=== PATIENT | male | born 1980 | race Caucasian/White ===

== ENCOUNTER 2017-09-22 15:54 | Emergency (ER) | payer OTHER ==
[2017-09-22 16:41] LABS: Basophils # (A) 0.1 k/uL (0-0.2); Basophils % (A) 1 %; Eosinophils # (A) 0.1 k/uL (0-0.7); Eosinophils % (A) 1 %; HCT 50.5 % (39.0-53.0); HGB 16.9 gm/dL (13.0-17.5); Lymphocytes % (A) 12 %; MCH 29.4 pg (25.0-35.0); MCHC 33.5 g/dL (31.0-37.0); MCV 87.7 fL (80.0-100.0); Mean Platelet Volume 7.6; Monocytes # (A) 0.3 k/uL (0-1.0); Monocytes % (A) 4 %; Neutrophils # (A) 6.8 k/uL (1.3-7.7); Neutrophils % (A) 81 %; Platelet Count 218 k/uL (150-450); RBC 5.76 m/uL (4.30-5.90); RDW 11.6 % (11.5-15.5); WBC 8.4 k/uL (3.8-10.6)
[2017-09-22 16:49] LABS: ALT 28 U/L (21-72); AST 27 U/L (17-59); Albumin 4.7 g/dL (3.5-5.0); Alkaline Phosphatase 68 U/L (38-126); Anion Gap 15 mmol/L; Blood Urea Nitrogen 8 mg/dL (9-20); Calcium 9.8 mg/dL (8.4-10.2); Carbon Dioxide 24 mmol/L (22-30); Chloride 102 mmol/L (98-107); Glucose 97 mg/dL (74-99); Potassium 4.1 mmol/L (3.5-5.1); Sodium 141 mmol/L (137-145); Total Bilirubin 0.4 mg/dL (0.2-1.3); Total Protein 7.5 g/dL (6.3-8.2)
[2017-09-22 16:51] LABS: INR 1.2 (<1.2); Partial Thromboplastin Time 26.8 sec (22.0-30.0); Prothrombin Time 11.4 sec (9.0-12.0)
--- NOTE | 2017-09-22 17:09 | XR ---
EXAMINATION: XR chest 2V DATE AND TIME: 09/22/2017 4:52 PM ORDERING PROVIDER: Deandre Britton MD CLINICAL INDICATION: Pain TECHNIQUE: PA and lateral COMPARISON: 09/27/2015 DESCRIPTION: The lungs are clear. The pleural spaces are negative. The cardiac silhouette is not enlarged. The mediastinal and pleural silhouettes are unremarkable. The skeletal structures are intact without focal findings. The soft tissues are unremarkable. IMPRESSION: NO ACUTE PROCESS.
[2017-09-22 17:19] VITALS: RESP 16
--- NOTE | 2017-09-22 17:22 | ED ---
General Adult HPI - General Chief complaint: Shortness of Breath Stated complaint: chest congestion Time Seen by Provider: 09/22/17 16:35 Source: patient, RN notes reviewed Mode of arrival: ambulatory Limitations: no limitations - History of Present Illness Initial comments: 37-year-old male presents emergency Department chief complaint cough congestion. Patient states that he's been sick for last 2 days. Patient denies any known sick contacts. Patient complains of body aches, runny nose, sore throat, cough which is nonproductive. Denies any known fever does complain of some chills. Denies any nausea vomiting diarrhea constipation. Patient is a daily smoker. Denies any current headache no dizziness no chest pain. - Related Data Home Medications Medication Instructions Recorded Confirmed D-Methorphan/PE/Acetaminophen 2 cap PO DAILY PRN 09/22/17 09/22/17 [Vicks Dayquil Liquicaps] Dm/Acetaminophen/Doxylamine [Vicks 2 cap PO HS PRN 09/22/17 09/22/17 Nyquil Liquicaps] Previous Rx's Medication Instructions Recorded Azithromycin [Zithromax Z-pack] 0 mg PO DIRECTED #1 pack 09/22/17 predniSONE 50 mg PO DAILY #5 tab 09/22/17 Allergies Allergy/AdvReac Type Severity Reaction Status Date / Time codeine AdvReac Nausea & Verified 09/22/17 16:40 Vomiting Penicillins AdvReac Nausea & Verified 09/22/17 16:40 Vomiting Review of Systems ROS Statement: Those systems with pertinent positive or pertinent negative responses have been documented in the HPI. ROS Other: All systems not noted in ROS Statement are negative. Past Medical History Past Medical History: No Reported History History of Any Multi-Drug Resistant Organisms: None Reported Past Surgical History: Hernia Repair Additional Past Surgical History / Comment(s): medhat Past Psychological History: Anxiety, Depression Smoking Status: Current every day smoker Past Alcohol Use History: Occasional Past Drug Use History: Marijuana General Exam Limitations: no limitations General appearance: alert, in no apparent distress Head exam: Present: atraumatic, normocephalic, normal inspection Eye exam: Present: normal appearance, PERRL, EOMI. Absent: scleral icterus, conjunctival injection, periorbital swelling ENT exam: Present: normal exam, normal oropharynx, mucous membranes moist, TM's normal bilaterally, normal external ear exam Neck exam: Present: normal inspection, full ROM. Absent: tenderness, meningismus, lymphadenopathy Respiratory exam: Present: normal lung sounds bilaterally. Absent: respiratory distress, wheezes, rales, rhonchi, stridor Cardiovascular Exam: Present: regular rate, normal rhythm, normal heart sounds. Absent: systolic murmur, diastolic murmur, rubs, gallop, clicks Neurological exam: Present: alert, oriented X3, CN II-XII intact Skin exam: Present: warm, dry, intact, normal color. Absent: rash Course Vital Signs 09/22/17 09/22/17 16:03 17:15 Temperature 99.2 F 98.6 F Pulse Rate 97 66 Respiratory 20 16 Rate Blood Pressure 121/78 114/58 O2 Sat by Pulse 97 99 Oximetry Medical Decision Making - Medical Decision Making 37-year-old male presented for fever cough congestion. Patient has acute bronchitis. Patient's influenza Laboratory unremarkable. Patient discharged with azithromycin, Medrol Dosepak. Patient was counseled detail regarding smoking cessation. - Lab Data Result diagrams: 09/22/17 16:28 09/22/17 16:28 Lab Results 09/22/17 09/22/17 09/22/17 Range/Units 16:28 16:28 16:28 WBC 8.4 (3.8-10.6) k/uL RBC 5.76 (4.30-5.90) m/uL Hgb 16.9 (13.0-17.5) gm/dL Hct 50.5 (39.0-53.0) % MCV 87.7 (80.0-100.0) fL MCH 29.4 (25.0-35.0) pg MCHC 33.5 (31.0-37.0) g/dL RDW 11.6 (11.5-15.5) % Plt Count 218 (150-450) k/uL Neutrophils % 81 % Lymphocytes % 12 % Monocytes % 4 % Eosinophils % 1 % Basophils % 1 % Neutrophils # 6.8 (1.3-7.7) k/uL Lymphocytes # 1.0 (1.0-4.8) k/uL Monocytes # 0.3 (0-1.0) k/uL Eosinophils # 0.1 (0-0.7) k/uL Basophils # 0.1 (0-0.2) k/uL PT (9.0-12.0) sec INR (<1.2) APTT (22.0-30.0) sec Sodium 141 (137-145) mmol/L Potassium 4.1 (3.5-5.1) mmol/L Chloride 102 (98-107) mmol/L Carbon Dioxide 24 (22-30) mmol/L Anion Gap 15 mmol/L BUN 8 L (9-20) mg/dL Creatinine 0.90 (0.66-1.25) mg/dL Est GFR (CKD-EPI)AfAm >90 (>60 ml/min/1.73 sqM) Est GFR (CKD-EPI)NonAf >90 (>60 ml/min/1.73 sqM) Glucose 97 (74-99) mg/dL Plasma Lactic Acid Deacon 0.9 (0.7-2.0) mmol/L Calcium 9.8 (8.4-10.2) mg/dL Total Bilirubin 0.4 (0.2-1.3) mg/dL AST 27 (17-59) U/L ALT 28 (21-72) U/L Alkaline Phosphatase 68 (38-126) U/L Total Protein 7.5 (6.3-8.2) g/dL Albumin 4.7 (3.5-5.0) g/dL Influenza Type A RNA (Not Detectd) Influenza Type B (PCR) (Not Detectd) 09/22/17 09/22/17 Range/Units 16:28 17:15 WBC (3.8-10.6) k/uL RBC (4.30-5.90) m/uL Hgb (13.0-17.5) gm/dL Hct (39.0-53.0) % MCV (80.0-100.0) fL MCH (25.0-35.0) pg MCHC (31.0-37.0) g/dL RDW (11.5-15.5) % Plt Count (150-450) k/uL Neutrophils % % Lymphocytes % % Monocytes % % Eosinophils % % Basophils % % Neutrophils # (1.3-7.7) k/uL Lymphocytes # (1.0-4.8) k/uL Monocytes # (0-1.0) k/uL Eosinophils # (0-0.7) k/uL Basophils # (0-0.2) k/uL PT 11.4 (9.0-12.0) sec INR 1.2 H (<1.2) APTT 26.8 (22.0-30.0) sec Sodium (137-145) mmol/L Potassium (3.5-5.1) mmol/L Chloride (98-107) mmol/L Carbon Dioxide (22-30) mmol/L Anion Gap mmol/L BUN (9-20) mg/dL Creatinine (0.66-1.25) mg/dL Est GFR (CKD-EPI)AfAm (>60 ml/min/1.73 sqM) Est GFR (CKD-EPI)NonAf (>60 ml/min/1.73 sqM) Glucose (74-99) mg/dL Plasma Lactic Acid Deacon (0.7-2.0) mmol/L Calcium (8.4-10.2) mg/dL Total Bilirubin (0.2-1.3) mg/dL AST (17-59) U/L ALT (21-72) U/L Alkaline Phosphatase (38-126) U/L Total Protein (6.3-8.2) g/dL Albumin (3.5-5.0) g/dL Influenza Type A RNA Not Detected (Not Detectd) Influenza Type B (PCR) Not Detected (Not Detectd) Disposition Clinical Impression: Acute bronchitis Disposition: HOME SELF-CARE Condition: Stable Instructions: Acute Bronchitis (ED) Additional Instructions: Please return to the Emergency Department if symptoms worsen or any other concerns. Prescriptions: Azithromycin [Zithromax Z-pack] 0 mg PO DIRECTED #1 pack predniSONE 50 mg PO DAILY #5 tab Referrals: None,Stated [Primary Care Provider] - 1-2 days Time of Disposition: 17:50
[2017-09-22 18:09] VITALS: BP 109/58; PULSE 77; TEMP 98.8
== END 2017-09-22 18:11 | disposition home or self-care (01) ==
LOC: EC 15:54
DX: J20.9 Acute bronchitis, unspecified (principal); F17.200 Nicotine dependence, unspecified, uncomplicated; Z88.0 Allergy status to penicillin; Z88.5 Allergy status to narcotic agent
CPT/HCPCS: 36415; 71046; 80053; 83605; 85025; 85610; 85730; 87040; 87502; 99285

== ENCOUNTER 2018-10-02 08:37 | Inpatient (IN) | payer OTHER ==
[2018-10-02 09:22] LABS: Basophils % (A) 0 %; Eosinophils # (A) 0.1 k/uL (0-0.7); Eosinophils % (A) 3 %; HCT 39.9 % (39.0-53.0); HGB 14.3 gm/dL (13.0-17.5); Lymphocytes % (A) 28 %; MCH 30.7 pg (25.0-35.0); MCV 85.3 fL (80.0-100.0); Mean Platelet Volume 8.8; Monocytes # (A) 0.3 k/uL (0-1.0); Monocytes % (A) 8 %; Neutrophils % (A) 59 %; Platelet Count 147 k/uL (150-450); RBC 4.68 m/uL (4.30-5.90); WBC 3.4 k/uL (3.8-10.6)
[2018-10-02 09:30] LABS: ALT 38 U/L (21-72); AST 35 U/L (17-59); Albumin 4.2 g/dL (3.5-5.0); Alkaline Phosphatase 87 U/L (38-126); Amylase 56 U/L (30-110); Anion Gap 9 mmol/L; Blood Urea Nitrogen 7 mg/dL (9-20); Calcium 9.4 mg/dL (8.4-10.2); Carbon Dioxide 27 mmol/L (22-30); Chloride 106 mmol/L (98-107); Glucose 91 mg/dL (74-99); Lipase 64 U/L (23-300); Potassium 3.5 mmol/L (3.5-5.1); Sodium 142 mmol/L (137-145); Total Bilirubin 0.6 mg/dL (0.2-1.3); Total Protein 6.6 g/dL (6.3-8.2)
[2018-10-02] MEDS ORDERED: ONDANSETRON 4 MG/2 ML VIAL IVP STA (09:31)
[2018-10-02] MEDS ORDERED: SODIUM CHLORIDE 0.9% 1,000 ML IV STA ×2 (09:31)
[2018-10-02] MEDS ORDERED: KETOROLAC 30 MG/ML 1 ML VIAL IVP STA (09:31)
--- NOTE | 2018-10-02 09:34 | ED ---
Abdominal Pain HPI - General Chief Complaint: Abdominal Pain Stated Complaint: abd pain Time Seen by Provider: 10/02/18 08:52 Source: patient, RN notes reviewed, old records reviewed Mode of arrival: ambulatory Limitations: no limitations - History of Present Illness Initial Comments: 38-year-old male presents emergency department today with 2 weeks of lower abdominal pain. He states that he is only relieved a few crackers and having stomach upset. He hasn't had vomiting within the past 10 days. Patient denies any associated chest pain or shortness of breath. He reports it seems there is having normal stools. Patient reports that he seen urgent care and been placed on multiple and acetaminophen this and recently started on Bentyl. He reports subjective fevers and chills. Patient states that he's had 2 hernia repair surgeries. - Related Data Home Medications Medication Instructions Recorded Confirmed No Known Home Medications 10/02/18 10/02/18 Allergies Allergy/AdvReac Type Severity Reaction Status Date / Time codeine AdvReac Nausea & Verified 10/02/18 10:03 Vomiting Penicillins AdvReac Nausea & Verified 10/02/18 10:03 Vomiting Review of Systems ROS Statement: Those systems with pertinent positive or pertinent negative responses have been documented in the HPI. ROS Other: All systems not noted in ROS Statement are negative. Past Medical History Past Medical History: GERD/Reflux History of Any Multi-Drug Resistant Organisms: None Reported Past Surgical History: Hernia Repair Additional Past Surgical History / Comment(s): medhat Past Psychological History: Anxiety, Depression Smoking Status: Current every day smoker Past Alcohol Use History: Occasional Past Drug Use History: Marijuana General Exam - General Exam Comments Initial Comments: This is a 38 male. Alert and oriented. No distress. Limitations: no limitations General appearance: alert, in no apparent distress Head exam: Present: atraumatic, normocephalic, normal inspection Eye exam: Present: normal appearance, PERRL, EOMI. Absent: scleral icterus, conjunctival injection, periorbital swelling ENT exam: Present: normal exam, mucous membranes moist Neck exam: Present: normal inspection. Absent: tenderness, meningismus, lymphadenopathy Respiratory exam: Present: normal lung sounds bilaterally. Absent: respiratory distress, wheezes, rales, rhonchi, stridor Cardiovascular Exam: Present: regular rate, normal rhythm, normal heart sounds. Absent: systolic murmur, diastolic murmur, rubs, gallop, clicks GI/Abdominal exam: Present: tenderness (Diffuse abdominal tenderness. Worsening tenderness over the left lower right lower quadrants.), normal bowel sounds. Absent: soft, distended, guarding, rebound, rigid Extremities exam: Present: normal inspection, full ROM, normal capillary refill. Absent: tenderness, pedal edema, joint swelling, calf tenderness Back exam: Present: normal inspection Course Vital Signs 10/02/18 10/02/18 10/02/18 08:39 11:45 13:01 Temperature 98.6 F Pulse Rate 86 54 L 71 Respiratory 18 16 18 Rate Blood Pressure 137/91 154/88 140/97 O2 Sat by Pulse 97 97 100 Oximetry Medical Decision Making - Medical Decision Making 38-year-old male presents for his pharmacy was 2 weeks of lower abdominal diffuse pain. Patient at this time has no fever. He reports subjective fevers at home. Patient has had no nausea or vomiting while in the ER. He's been seen by urgent care and treated with multiple antacid medication. Patient at this time was given IV fluids labwork obtained. Patient's lab work does show a low white blood cell count of 3.4. Low platelet count. She panels were unr emarkable. Urine sample did show 3+ ketones. No sign of infection. On exam he had diffuse lower abdominal tenderness. When asked Patient on KUB and computed tomography scan about previous CTs with oral contrast he states he's not had any. He has been taking oral liquid antacid medication such as Pepto-Bismol. Patient at this time had abnormal CT findings of some mild free fluid in the pelvis. He also has evidence of hepatic congestion of uncertain etiology. His liver enzymes were unremarkable. Patient informed of these results. I discussed the case with Dr. Loving. He recommended admitting the Patient at this time with consults to surgery. Patient is agreement to this plan. All questions answered. - Lab Data Result diagrams: 10/02/18 09:06 10/02/18 09:06 Lab Results 10/02/18 10/02/18 10/02/18 Range/Units 09:06 09:06 09:30 WBC 3.4 L (3.8-10.6) k/uL RBC 4.68 (4.30-5.90) m/uL Hgb 14.3 (13.0-17.5) gm/dL Hct 39.9 (39.0-53.0) % MCV 85.3 (80.0-100.0) fL MCH 30.7 (25.0-35.0) pg MCHC 36.0 (31.0-37.0) g/dL RDW 13.0 (11.5-15.5) % Plt Count 147 L (150-450) k/uL Neutrophils % 59 % Lymphocytes % 28 % Monocytes % 8 % Eosinophils % 3 % Basophils % 0 % Neutrophils # 2.0 (1.3-7.7) k/uL Lymphocytes # 1.0 (1.0-4.8) k/uL Monocytes # 0.3 (0-1.0) k/uL Eosinophils # 0.1 (0-0.7) k/uL Basophils # 0.0 (0-0.2) k/uL Sodium 142 (137-145) mmol/L Potassium 3.5 (3.5-5.1) mmol/L Chloride 106 (98-107) mmol/L Carbon Dioxide 27 (22-30) mmol/L Anion Gap 9 mmol/L BUN 7 L (9-20) mg/dL Creatinine 0.85 (0.66-1.25) mg/dL Est GFR (CKD-EPI)AfAm >90 (>60 ml/min/1.73 sqM) Est GFR (CKD-EPI)NonAf >90 (>60 ml/min/1.73 sqM) Glucose 91 (74-99) mg/dL Calcium 9.4 (8.4-10.2) mg/dL Total Bilirubin 0.6 (0.2-1.3) mg/dL AST 35 (17-59) U/L ALT 38 (21-72) U/L Alkaline Phosphatase 87 (38-126) U/L Total Protein 6.6 (6.3-8.2) g/dL Albumin 4.2 (3.5-5.0) g/dL Amylase 56 (30-110) U/L Lipase 64 (23-300) U/L Urine Color Yellow Urine Appearance Clear (Clear) Urine pH 8.5 H (5.0-8.0) Ur Specific [place] 1.021 (1.001-1.035) Urine Protein Trace H (Negative) Urine Glucose (UA) Negative (Negative) Urine Ketones 3+ H (Negative) Urine Blood Negative (Negative) Urine Nitrite Negative (Negative) Urine Bilirubin Negative (Negative) Urine Urobilinogen 2.0 (<2.0) mg/dL Ur Leukocyte Esterase Negative (Negative) - Radiology Data Radiology results: report reviewed CT shows nonspecific small amount of pelvic free fluid abnormal for a male Patient but of uncertain etiology. Be monitored clinically. Mild hepatomegaly with heterogeneous appearance of the liver inferior portal edema. Distention of the IVC as well. May relate to an aggressive hydrated state. Correlating with LFTs to exclude possibility of underlying hepatitis. Mild cervical differential bladder wall thickening correlate to exclude cystitis. Some retained oral contrast material in the right colon as well as rectum. Correlating for any recent outside radiographic studies. Disposition Clinical Impression: Intractable abdominal pain, Free fluid in pelvis, Hepatomegaly Disposition: ADMITTED IP TO THIS HOSP Condition: Stable Is patient prescribed a controlled substance at d/c from ED?: No Referrals: None,Stated [Primary Care Provider] - 1-2 days Time of Disposition: 13:30
[2018-10-02 09:50] LABS: Appearance,Urine Clear (Clear); Bilirubin,Urine Negative (Negative); Blood,Urine Negative (Negative); Color,Urine Yellow; Glucose,Urine (UA) Negative (Negative); Ketones,Urine 3+ (Negative); Leukocyte Esterase,Urine Negative (Negative); Nitrite,Urine Negative (Negative); PH, Urine 8.5 (5.0-8.0); Protein,Urine Trace (Negative); Specific Gravity,Urine 1.021 (1.001-1.035)
--- NOTE | 2018-10-02 10:52 | XR ---
EXAMINATION TYPE: XR KUB DATE OF EXAM: 10/02/2018 CLINICAL DATA: 38-year-old male with abdominal pain, PHH COMPARISON: None FINDINGS: Lung bases are clear. No evidence for free intraperitoneal air. Small air-fluid levels are noted within the right paramedian mid to lower abdominal small bowel loops . No abnormal dilatation. Scattered colonic air. There is faint density within the cecum and ascendin g colon that could represent faint oral contrast material. No suspicious calcifications seen. IMPRESSION: 1. Nonspecific, overall nonobstructive bowel gas pattern. No free air. 2. Small central air-fluid levels in the right paramedian mid to lower abdomen suggest a regional ile us or enteritis. 3. Some faint density in the cecum and ascending colon could represent residual oral contrast if the patient had a recent outside fluoroscopic swallow study or oral contrast enhanced CT.
--- NOTE | 2018-10-02 12:06 | CT ---
EXAMINATION TYPE: CT abdomen pelvis w con DATE OF EXAM: 10/02/2018 COMPARISON: NONE HISTORY: 38-year-old male Lower pelvic pain, 13 days TECHNIQUE: Contiguous axial scanning of the abdomen and pelvis following administration of 100 ml Iso rosemarie 300 IV contrast. Delayed images through the kidneys and coronal/sagittal reconstructions perform ed. CT DLP: 550.4 mGycm Automated exposure control for dose reduction was used. FINDINGS: Heart normal size without pericardial effusion. Bases clear without pleural effusion. Slightly heterogeneous appearance to the liver. Mild periportal edema. Liver is mildly enlarged at 18 .3 cm. Portal venous system is patent. No biliary ductal dilatation. Prominent distention of the IVC. Gallbladder, adrenal glands, kidneys, spleen, and pancreas appear within normal limits. No dilated small bowel, free fluid, or free air. Normal appendix is seen. There is some retained oral contrast material within the cecum and small ana unt within the rectum as well. No significant stool burden. No mesenteric or retroperitoneal lymphadenopathy. A few scattered prominent mesenteric lymph nodes me asure up to 5 mm. Mild circumferential bladder wall thickening. Prostate gland measures 3.6 cm wide. Trace pelvic free fluid. No pelvic lymphadenopathy. Bones: No osseous destructive process. IMPRESSION: 1. NONSPECIFIC SMALL AMOUNT OF PELVIC FREE FLUID, ABNORMAL FOR A MALE PATIENT BUT OF UNCERTAIN ETIOLO GY. THE PATIENT'S STATUS CAN BE MONITORED CLINICALLY. 2. MILD HEPATOMEGALY WITH SLIGHTLY HETEROGENEOUS APPEARANCE TO THE LIVER AND PERIPORTAL EDEMA. GIVEN DISTENTION OF THE IVC WELL, FINDINGS MAY RELATE TO AGGRESSIVE HYDRATED STATE. CORRELATE WITH LFT's TO EXCLUDE THE POSSIBILITY OF UNDERLYING HEPATITIS. 3. MILD CIRCUMFERENTIAL BLADDER WALL THICKENING; CORRELATE TO EXCLUDE CYSTITIS. 4. SOME RETAINED ORAL CONTRAST MATERIAL IS CONFIRMED IN THE RIGHT SIDE OF THE COLON WELL THE RE CTUM. CORRELATE FOR ANY RECENT OUTSIDE RADIOGRAPHIC/CT STUDIES.
[2018-10-02] MEDS ORDERED: MORPHINE SULFATE 4 MG/ML SYRINGE IVP STA (12:49)
[2018-10-02] MEDS ORDERED: ACETAMINOPHEN TAB 325 MG TAB PO PRN (13:31)
[2018-10-02] MEDS ORDERED: KETOROLAC 30 MG/ML 1 ML VIAL IVP PRN (13:31)
[2018-10-02] MEDS ORDERED: NALOXONE 0.4 MG/ML 1 ML VIAL IV PRN (13:31)
[2018-10-02] MEDS: MORPHINE SULFATE 4 MG/ML SYRINGE IV PRN ×2 (15:14→19:56)
[2018-10-02] MEDS ORDERED: ALPRAZolam 0.25 MG TAB PO PRN (17:07)
[2018-10-02] MEDS ORDERED: TEMAZEPAM 15 MG CAP PO PRN (17:07)
[2018-10-02] MEDS: SODIUM CHLORIDE 0.9% 1,000 ML IV SCH ×4 (17:26→23:53)
[2018-10-02] MEDS: ONDANSETRON 4 MG/2 ML VIAL IVP PRN (17:27)
--- NOTE | 2018-10-02 18:01 | XR ---
EXAMINATION: XR chest 1V portable DATE AND TIME: 10/02/2018 5:34 PM CLINICAL INDICATION: PHH; chf TECHNIQUE: AP upright portable COMPARISON: 09/22/2017 FINDINGS: The lungs are clear. The pleural spaces are negative. The cardiac silhouette is not enlarged. The remainder of the mediastinal silhouette is unremarkable. The skeletal structures and soft tissues are negative for acute findings. IMPRESSION: NO ACUTE PROCESS.
[2018-10-02 18:57] LABS: Amphetamine Screen,Urine Not Detected (NotDetected); Barbiturate Screen,Urine Not Detected (NotDetected); Benzodiazepines Screen,Urine Not Detected (NotDetected); Cocaine Screen,Urine Not Detected (NotDetected); Methadone Screen, Urine Not Detected (NotDetected); Opiate Screen,Urine Detected (NotDetected); Oxycodone Screen, Urine Not Detected (NotDetected); Phencyclidine Screen,Urine Not Detected (NotDetected); Tricyclic Antidepressant,Urine Not Detected (NotDetected); Urn Cannabinoid Scrn Detected (NotDetected)
[2018-10-02] MEDS: HEPARIN SODIUM,PORCINE 5,000 UNIT/ML 1 ML VIAL SQ SCH (19:54)
[2018-10-02] MEDS: OSELTAMIVIR 75 MG CAP PO SCH (19:56)
[2018-10-02] MEDS: PANTOPRAZOLE 40 MG/10 ML VIAL IVP SCH (19:56)
--- NOTE | 2018-10-02 20:29 | HP ---
HISTORY AND PHYSICAL CHIEF COMPLAINTS: Abdominal pain and flu-like symptoms. HISTORY OF PRESENT ILLNESS: This 38-year-old gentleman with a past medical history of GERD, history of hernia repair, history of anxiety, depression, not being followed by any primary physician in the outpatient setting, has been complaining of flu symptoms for the past several days. Patient is not feeling well. Patient has cough and sputum. Patient is also complaining of abdominal pain which is felt in the upper part of the abdomen and subsequently in the lower part, also. The patient came to [facility] and was admitted for further evaluation and treatment. The patient apparently had hernia surgery while the patient was in [place]. Patient is not followed by any primary physician in the outpatient setting at this time. PAST MEDICAL HISTORY: 1. Previous hernia surgery. 2. History of GERD. 3. History of anxiety/depression. HOME MEDICATIONS: None. ALLERGIES: CODEINE and PENICILLIN. FAMILY HISTORY: History of heart disease, strokes. SOCIAL HISTORY: History of smoking. Occasional alcohol intake and marijuana usage. REVIEW OF SYSTEMS: ENT: No diminished hearing. No diminished vision. CARDIOVASCULAR SYSTEM: No angina, palpitations. RESPIRATORY SYSTEM: As mentioned earlier. GI: As mentioned earlier. : No dysuria or retention. NERVOUS SYSTEM: No numbness, weakness. ALLERGY/IMMUNOLOGY: No asthma, hayfever. MUSCULOSKELETAL: As mentioned earlier. HEMATOLOGY/ONCOLOGY: No history of anemia. ENDOCRINE: No history of diabetes, hypothyroidism. CONSTITUTIONAL: As mentioned earlier. DERMATOLOGY: Negative. RHEUMATOLOGY: Negative. PSYCHIATRY: As mentioned earlier. PHYSICAL EXAMINATION: Patient is alert and oriented x3. Pulse 66, blood pressure 127/87, respiration 18, temperature 98.5, pulse ox 100% on room air. HEENT: Conjunctivae normal. Oral mucosa moist. NECK: No jugular venous distention. No carotid bruit. No lymph node enlargement. CARDIOVASCULAR SYSTEM: S1, S2 muffled. No S3. No S4. RESPIRATORY SYSTEM: Breath sounds diminished at the bases. A few rhonchi. No crackles. ABDOMEN: Soft. Mild diffuse discomfort with palpation. No guarding. No rigidity. No mass palpable. No tenderness. No ascites. LEGS: No edema. No swelling. NERVOUS SYSTEM: Higher functions as mentioned earlier. Moves all 4 limbs. No focal motor or sensory deficit. LYMPHATICS: No lymph node palpable in neck, axillae or groin. SKIN: No ulcer, rash, bleeding. JOINTS: No active deforming arthropathy. LABS: Labs at this time show WBC 3.4, hemoglobin 14.3, platelets 147. Urine ketones are [address] scan of the abdomen showed a small amount of fluid in the pelvis with hepatomegaly. ASSESSMENT: 1. Abdominal pain for evaluation with possibly mild hepatomegaly and minimal ascites, possibly viral syndrome. 2. Mild circumferential urinary bladder wall thickening, possibly cystitis. 3. Mild leukopenia. 4. Thrombocytopenia, possibly secondary to viral syndrome. 5. History of gastroesophageal reflux disease. 6. History of anxiety, depression. 7. History of nicotine dependence. 8. History of tetrahydrocannabinol. RECOMMENDATIONS AND DISCUSSION: In this 38-year-old gentleman who presented with multiple complex medical issues, we will monitor the patient closely, continue the current medications, continue with symptomatic treatment. Surgical evaluation has been sought. Multiple findings noted in the x-ray plain. The CT scan of the abdomen is rather unusual. I would recommend testing and continue to monitor. Viral syndrome can also produce the same symptoms. See orders for details. Symptomatic treatment provided. Further recommendations to follow. Prognosis guarded. Also recommend that the patient follow up with a family physician in the outpatient setting. MMODL / IJN: [id number] / MTDD
--- NOTE | 2018-10-02 21:35 | P.GSCN ---
History of Present Illness Consult date: 10/02/18 History of present illness: Patient has the flu with overlapping gastroenteritis. No surgical intervention. Aggressive IVF hydration and treatment for flu. Past Medical History Past Medical History: GERD/Reflux History of Any Multi-Drug Resistant Organisms: None Reported Past Surgical History: Hernia Repair Additional Past Surgical History / Comment(s): medhat Past Psychological History: Anxiety, Depression Smoking Status: Current every day smoker Past Alcohol Use History: Occasional Past Drug Use History: Marijuana Medications and Allergies Home Medications Medication Instructions Recorded Confirmed Type No Known Home Medications 10/02/18 10/02/18 History Allergies Allergy/AdvReac Type Severity Reaction Status Date / Time codeine AdvReac Nausea & Verified 10/02/18 10:03 Vomiting Penicillins AdvReac Nausea & Verified 10/02/18 10:03 Vomiting Surgical - Exam Vital Signs Temp Pulse Resp BP Pulse Ox 98.6 F 86 18 137/91 97 10/02/18 08:39 10/02/18 08:39 10/02/18 08:39 10/02/18 08:39 10/02/18 08:39 Results - Labs 10/02/18 09:06 10/02/18 09:06 Abnormal Lab Results - Last 24 Hours (Table) 10/02/18 10/02/18 10/02/18 Range/Units 09:06 09:06 09:06 WBC 3.4 L (3.8-10.6) k/uL Plt Count 147 L (150-450) k/uL BUN 7 L (9-20) mg/dL C-Reactive Protein 18.1 H (<10.0) mg/L Urine pH (5.0-8.0) Urine Protein (Negative) Urine Ketones (Negative) Urine Opiates Screen (NotDetected) U Marijuana (THC) Screen (NotDetected) Influenza Type B (PCR) (Not Detectd) 10/02/18 10/02/18 10/02/18 Range/Units 09:30 17:30 18:35 WBC (3.8-10.6) k/uL Plt Count (150-450) k/uL BUN (9-20) mg/dL C-Reactive Protein (<10.0) mg/L Urine pH 8.5 H (5.0-8.0) Urine Protein Trace H (Negative) Urine Ketones 3+ H (Negative) Urine Opiates Screen Detected H (NotDetected) U Marijuana (THC) Screen Detected H (NotDetected) Influenza Type B (PCR) Detected H (Not Detectd) Diabetes panel 10/02/18 Range/Units 09:06 Sodium 142 (137-145) mmol/L Potassium 3.5 (3.5-5.1) mmol/L Chloride 106 (98-107) mmol/L Carbon Dioxide 27 (22-30) mmol/L BUN 7 L (9-20) mg/dL Creatinine 0.85 (0.66-1.25) mg/dL Glucose 91 (74-99) mg/dL Calcium 9.4 (8.4-10.2) mg/dL AST 35 (17-59) U/L ALT 38 (21-72) U/L Alkaline Phosphatase 87 (38-126) U/L Total Protein 6.6 (6.3-8.2) g/dL Albumin 4.2 (3.5-5.0) g/dL Calcium panel 10/02/18 Range/Units 09:06 Calcium 9.4 (8.4-10.2) mg/dL Albumin 4.2 (3.5-5.0) g/dL Pituitary panel 10/02/18 Range/Units 09:06 Sodium 142 (137-145) mmol/L Potassium 3.5 (3.5-5.1) mmol/L Chloride 106 (98-107) mmol/L Carbon Dioxide 27 (22-30) mmol/L BUN 7 L (9-20) mg/dL Creatinine 0.85 (0.66-1.25) mg/dL Glucose 91 (74-99) mg/dL Calcium 9.4 (8.4-10.2) mg/dL Adrenal panel 10/02/18 Range/Units 09:06 Sodium 142 (137-145) mmol/L Potassium 3.5 (3.5-5.1) mmol/L Chloride 106 (98-107) mmol/L Carbon Dioxide 27 (22-30) mmol/L BUN 7 L (9-20) mg/dL Creatinine 0.85 (0.66-1.25) mg/dL Glucose 91 (74-99) mg/dL Calcium 9.4 (8.4-10.2) mg/dL Total Bilirubin 0.6 (0.2-1.3) mg/dL AST 35 (17-59) U/L ALT 38 (21-72) U/L Alkaline Phosphatase 87 (38-126) U/L Total Protein 6.6 (6.3-8.2) g/dL Albumin 4.2 (3.5-5.0) g/dL
[2018-10-03] MEDS: MORPHINE SULFATE 4 MG/ML SYRINGE IV PRN ×4 (01:18→19:15)
[2018-10-03] MEDS: ONDANSETRON 4 MG/2 ML VIAL IVP PRN ×2 (05:10→15:06)
[2018-10-03 08:49] LABS: Basophils % (A) 1 %; Eosinophils % (A) 1 %; HCT 39.5 % (39.0-53.0); HGB 13.9 gm/dL (13.0-17.5); Lymphocytes # (A) 1.5 k/uL (1.0-4.8); Lymphocytes % (A) 39 %; MCH 30.2 pg (25.0-35.0); MCHC 35.2 g/dL (31.0-37.0); Mean Platelet Volume 10.4; Monocytes # (A) 0.2 k/uL (0-1.0); Monocytes % (A) 6 %; Neutrophils # (A) 1.9 k/uL (1.3-7.7); Neutrophils % (A) 50 %; Platelet Count 111 k/uL (150-450); RDW 13.1 % (11.5-15.5); WBC 3.8 k/uL (3.8-10.6)
[2018-10-03] MEDS ORDERED: PANTOPRAZOLE 40 MG/10 ML VIAL IV SCH (09:00)
[2018-10-03 09:02] LABS: ALT 34 U/L (21-72); AST 30 U/L (17-59); Albumin 3.8 g/dL (3.5-5.0); Alkaline Phosphatase 71 U/L (38-126); Anion Gap 8 mmol/L; Blood Urea Nitrogen 13 mg/dL (9-20); Calcium 8.6 mg/dL (8.4-10.2); Carbon Dioxide 25 mmol/L (22-30); Chloride 107 mmol/L (98-107); Glucose 79 mg/dL (74-99); Magnesium 1.8 mg/dL (1.6-2.3); Potassium 3.7 mmol/L (3.5-5.1); Sodium 140 mmol/L (137-145); Total Bilirubin 0.7 mg/dL (0.2-1.3)
[2018-10-03] MEDS: PANTOPRAZOLE 40 MG/10 ML VIAL IVP SCH ×2 (09:07→22:51)
[2018-10-03] MEDS: HEPARIN SODIUM,PORCINE 5,000 UNIT/ML 1 ML VIAL SQ SCH ×3 (09:07→22:20)
[2018-10-03] MEDS: MULTIVITAMINS, THERA 1 EACH TAB PO SCH (09:08)
[2018-10-03] MEDS: OSELTAMIVIR 75 MG CAP PO SCH ×2 (09:08→22:51)
[2018-10-03] MEDS: SODIUM CHLORIDE 0.9% 1,000 ML IV SCH (10:07)
[2018-10-03] MEDS: KETOROLAC 30 MG/ML 1 ML VIAL IVP PRN ×2 (12:09→17:46)
--- NOTE | 2018-10-03 15:16 | P.PN ---
Subjective Progress Note Date: 10/03/18 CHIEF COMPLAINT: Abdominal pain HISTORY OF PRESENT ILLNESS: Patient seen and examined at the bedside. Patient continues to complain of mild vague generalized abdominal pain. Patient reports episode of bilious emesis this morning, but no further episodes since that time. Passing flatus. Denies diarrhea. He is tolerating clear liquids. Vital signs stable. Afebrile. PHYSICAL EXAM: VITAL SIGNS: Reviewed. GENERAL: Well-developed in no acute distress. HEENT: No sclera icterus. Extraocular movements grossly intact. Moist buccal mucosa. Head is atraumatic, normocephalic. ABDOMEN: Soft. Nondistended. Nontender. Positive bowel sounds. NEUROLOGIC: Alert and oriented. Cranial nerves II through XII grossly intact. ASSESSMENT: 1. Generalized abdominal pain with episodes of nausea and vomiting, suspect gastroenteritis 2. Acute influenza B PLAN: 1. Continue supportive measures 2. Continue IV fluids 3. Continue clear liquids. Advance as tolerated 4. No surgical intervention recommended Nurse practitioner note has been reviewed by physician. Signing provider agrees with the documented findings, assessment, and plan of care. Objective - Vital Signs Vital signs: Vital Signs Temp 97.8 F 10/03/18 05:20 Pulse 79 10/03/18 05:20 Resp 17 10/03/18 05:20 BP 129/98 10/03/18 05:20 Pulse Ox 100 10/03/18 05:20 Intake & Output 10/02/18 10/03/18 10/03/18 18:59 06:59 18:59 Weight 62.596 kg Other: Voiding Method Toilet # Voids 2 - Labs CBC & Chem 7: 10/03/18 08:17 10/03/18 08:17 Labs: Abnormal Lab Results - Last 24 Hours (Table) 10/02/18 10/02/18 10/02/18 Range/Units 09:06 17:30 18:35 Plt Count (150-450) k/uL C-Reactive Protein 18.1 H (<10.0) mg/L Total Protein (6.3-8.2) g/dL Urine Opiates Screen Detected H (NotDetected) U Marijuana (THC) Screen Detected H (NotDetected) Influenza Type B (PCR) Detected H (Not Detectd) 10/03/18 10/03/18 Range/Units 08:17 08:17 Plt Count 111 L (150-450) k/uL C-Reactive Protein (<10.0) mg/L Total Protein 6.0 L (6.3-8.2) g/dL Urine Opiates Screen (NotDetected) U Marijuana (THC) Screen (NotDetected) Influenza Type B (PCR) (Not Detectd) Assessment and Plan (1) Gastroenteritis Current Visit: Yes Status: Acute Code(s): K52.9 - NONINFECTIVE GA STROENTERITIS AND COLITIS, UNSPECIFIED SNOMED Code(s): 89845715 (2) Influenza B Current Visit: Yes Status: Acute Code(s): J10.1 - FLU DUE TO OTH IDENT INFLUENZA VIRUS W OTH RESP MANIFEST SNOMED Code(s): 68379181 (3) Nausea & vomiting Current Visit: Yes Status: Acute Code(s): R11.2 - NAUSEA WITH VOMITING, UNSPECIFIED SNOMED Code(s): 04682025 (4) Free fluid in pelvis Current Visit: Yes Status: Acute Code(s): R18.8 - OTHER ASCITES SNOMED Code(s): 063102522
[2018-10-04] MEDS: KETOROLAC 30 MG/ML 1 ML VIAL IVP PRN ×3 (03:53→17:22)
[2018-10-04] MEDS: MORPHINE SULFATE 4 MG/ML SYRINGE IV PRN ×2 (04:23→08:09)
[2018-10-04] MEDS: HEPARIN SODIUM,PORCINE 5,000 UNIT/ML 1 ML VIAL SQ SCH ×2 (08:02→20:52)
--- NOTE | 2018-10-04 08:05 | PN ---
PROGRESS NOTE DATE OF SERVICE: 10/03/2018 This 38-year-old gentleman admitted with acute abdominal pain and other symptoms was found to have influenza B positive. The patient antiviral medication at this time. The patient's antiviral. The patient being closely monitored at this time. No chest. No palpitations. Surgery is following the patient closely. EXAM: Alert and oriented times three. Pulse is 55, blood pressure 133/83, respiration 18, temperature 97.2, pulse ox 100 percent on room air. HEENT: Conjunctivae normal. NECK: No jugular venous distention. CARDIOVASCULAR: S1, S2 muffled. Respiratory: Breath sounds diminished in the bases. No rhonchi. No crackles. Abdomen is soft. Mild diffuse discomfort on palpation. CENTRAL NERVOUS SYSTEM: No focal deficits. LAB STUDIES: WBC 3.2, hemoglobin 13.9, and platelets are 111. Influenza B positive. ASSESSMENT: 1. Abdominal pain with mild hepatomegaly. Minimal ascites, possibly viral syndrome with influenza B. 2. Mild circumferentially urinary bladder thickening, possibly cystitis. 3. Mild leukopenia. 4. Thrombocytopenia, possibly secondary to viral syndrome. 5. History of gastroesophageal reflux disease. 6. History of anxiety, depression. 7. History of nicotine dependence. 8. History of THC. RECOMMENDATIONS AND DISCUSSION: Recommend to continue current medications, symptomatic treatment, management. Continue with antivirals. Otherwise, I would also recommend symptomatic treatment by Surgery and Infectious Disease also has been consulted. Guarded prognosis because of multiple complex medical issues and further recommendations to follow. MMODL / IJN: [id number] / RENÉ
[2018-10-04] MEDS: PANTOPRAZOLE 40 MG/10 ML VIAL IVP SCH ×2 (08:09→20:48)
[2018-10-04] MEDS: OSELTAMIVIR 75 MG CAP PO SCH ×2 (08:09→20:50)
[2018-10-04] MEDS: MULTIVITAMINS, THERA 1 EACH TAB PO SCH (08:09)
[2018-10-04] MEDS: SODIUM CHLORIDE 0.9% 1,000 ML IV SCH (08:10)
--- NOTE | 2018-10-04 09:56 | P.PN ---
Progress Note - Text Progress Note Date: 10/04/18 The patient's resting comfortably in his bed. He has still some complaints of mild abdominal pain. He is tolerating his diet. On exam his vital signs are stable. His abdomen soft. Resolving gastritis. Patient will most likely be discharged home the next 24-48 hours.
[2018-10-04] MEDS ORDERED: HYDROcodone/APAP 5-325MG 1 EACH TAB PO PRN (11:33)
[2018-10-04 12:00] LABS: Basophils % (A) 1 %; Eosinophils % (A) 1 %; HCT 39.2 % (39.0-53.0); HGB 13.9 gm/dL (13.0-17.5); Lymphocytes # (A) 1.5 k/uL (1.0-4.8); Lymphocytes % (A) 23 %; MCH 30.3 pg (25.0-35.0); MCHC 35.5 g/dL (31.0-37.0); MCV 85.4 fL (80.0-100.0); Mean Platelet Volume 9.3; Monocytes # (A) 0.3 k/uL (0-1.0); Monocytes % (A) 5 %; Neutrophils # (A) 4.3 k/uL (1.3-7.7); Neutrophils % (A) 67 %; Platelet Count 154 k/uL (150-450); RBC 4.59 m/uL (4.30-5.90); RDW 12.4 % (11.5-15.5); WBC 6.4 k/uL (3.8-10.6)
[2018-10-04 12:48] LABS: ALT 40 U/L (21-72); AST 49 U/L (17-59); Albumin 4.1 g/dL (3.5-5.0); Alkaline Phosphatase 76 U/L (38-126); Blood Urea Nitrogen 9 mg/dL (9-20); Calcium 9.1 mg/dL (8.4-10.2); Carbon Dioxide 16 mmol/L (22-30); Glucose 87 mg/dL (74-99); Potassium 3.7 mmol/L (3.5-5.1); Sodium 139 mmol/L (137-145); Total Protein 6.4 g/dL (6.3-8.2)
[2018-10-04 13:01] LABS: Anion Gap 13 mmol/L; Chloride 110 mmol/L (98-107)
[2018-10-04] MEDS: IBUPROFEN 400 MG TAB PO PRN ×2 (13:47→21:54)
[2018-10-04] MEDS: ONDANSETRON 4 MG/2 ML VIAL IVP PRN ×2 (13:47→21:54)
[2018-10-04] MEDS: METOCLOPRAMIDE 5 MG/ML 2 ML VIAL IVP PRN (15:34)
--- NOTE | 2018-10-04 19:04 | P.CONS ---
History of Present Illness - Reason for Consult Consult date: 10/04/18 - Chief Complaint Abdominal pain - History of Present Illness 38 -year-old male who presents to the emergency center with a 10 day history of increasing amounts of abdominal pain. He's been feeling poorly for the entire time having difficulties eating. Developing waxes and wanes this severe. B ecause it was non-improving he came to the emergency center and there is evidence some low-grade fever and testing was performed. Without evidence of influenza B was admitted hospital and has been initiated antiviral therapy. Patient continues to feel poorly he continues to have abdominal pain and there is evidence of some free fluid in the pelvis and with concerns to ongoing infection infectious diseases consultation was requested. Araceli Rob is a with the family home with his and 2 children. 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 He is unable to relate any significant changes as of late as to why he was ill. He over is of course around children because of his kids and the home setting. Does not recall others that are ill but his children have had respiratory infection the last month. No one else has had any significant gastrointestinal symptoms though. Review of Systems 38-year-old male, relates he's not been eating and drinking well over the last nearly 2 weeks. Believes at least a 10 pound weight loss. HEENT: His had some mild headaches but no acute visual change. Denies sinus or mouth discomforts. Denies neck stiffness or pain. Denies significant oral cavity pain. Denies difficulty on swallowing. Lungs: Denies significant shortness of breath, cough, sputum production, or hemoptysis. Cardiovascular: Denies significant shortness of breath, chest pain, chest wall pain, orthopnea, dyspnea on exertion, syncope Gastrointestinal: Relates his significant ongoing abdominal pain. He states that he like to cut his abdomen open to let the pain out. It is mostly in the right upper quadrant radiating to the right lower quadrant. He has anorexia.. He tries to eat he feels admittedly full. However is not having significant amounts of emesis. He does not have hematemesis. He said eating well and has very little bowel movement and is not having diarrhea. No melena or hematochezia. Musculoskeletal: denies significant myalgias or arthralgias. No new joint swelling. Denies new back pain. Skin: Denies new rash or lesions. No new ulcers or wounds are related.. Neuro: Denies headache or visual change. Denies any new onset weakness or difficulty with ambulation. Denies falls or seizures. Psychiatric: Anxious because of the non-remitting abdominal pain Endocrine: Progressive fatigue and weight loss Past Medical History Past Medical History: GERD/Reflux History of Any Multi-Drug Resistant Organisms: None Reported Past Surgical History: Hernia Repair Additional Past Surgical History / Comment(s): medhat Past Psychological History: Anxiety, Depression Additional Psychological History / Comment(s): and lives in the family home with and 2 kids. 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 No experience. No international travel pet dog in the home. Positive tobacco use but has markedly diminished in the last 2 weeks because he has been ill. Denies significant alcohol use. Denies a history of any injection drug abuse or narcotic abuse Smoking Status: Current every day smoker Past Alcohol Use History: Occasional Past Drug Use History: Marijuana Medications and Allergies Home Medications and Allergies Comment(s): Current Medications Acetaminophen (Tylenol Tab) 650 mg PO Q6HR PRN PRN Reason: Mild Pain or Fever > 100.5 Last Admin: 10/04/18 14:55 Dose: 650 mg Documented by: Hydrocodone Bitart/Acetaminophen ([place] 5-325) 1 each PO Q8HR PRN PRN Reason: SEVERE Pain Last Admin: 10/04/18 11:42 Dose: 1 each Documented by: Alprazolam (Xanax) 0.25 mg PO TID PRN PRN Reason: Anxiety Heparin Sodium (Porcine) (Heparin) 5,000 unit SQ Q12HR [facility] Last Admin: 10/04/18 08:02 Dose: Not Given Documented by: Sodium Chloride (Saline 0.9%) 1,000 mls @ 60 mls/hr IV .[id number] [facility] Last Admin: 10/04/18 08:10 Dose: 60 mls/hr Documented by: Ibuprofen (Motrin) 400 mg PO Q6HR PRN PRN Reason: Mild Pain or Fever > 100.5 Last Admin: 10/04/18 13:47 Dose: 400 mg Documented by: Ketorolac Tromethamine (Toradol) 15 mg IVP Q6HR PRN PRN Reason: Moderate Pain Stop: 10/07/18 13:32 Last Admin: 10/04/18 17:22 Dose: 15 mg Documented by: Metoclopramide HCl (Reglan) 10 mg IVP Q6HR PRN PRN Reason: Nausea And Vomiting Last Admin: 10/04/18 15:34 Dose: 10 mg Documented by: Multivitamins (Theragran) 1 each PO DAILY@1200 YANELI Last Admin: 10/04/18 08:09 Dose: 1 each Documented by: Naloxone HCl (Narcan) 0.2 mg IV Q2M PRN PRN Reason: Opioid Reversal Ondansetron HCl (Zofran) 4 mg IVP Q8HR PRN PRN Reason: Nausea And Vomiting Last Admin: 10/04/18 13:47 Dose: 4 mg Documented by: Oseltamivir Phosphate (Tamiflu) 75 mg PO Q12HR YANELI Stop: 10/07/18 09:01 Last Admin: 10/04/18 08:09 Dose: 75 mg Documented by: Pantoprazole Sodium (Protonix) 40 mg IVP BID [facility] Last Admin: 10/04/18 08:09 Dose: 40 mg Documented by: Temazepam (Restoril) 15 mg PO HS PRN PRN Reason: Insomnia Home Medications Medication Instructions Recorded Confirmed Type No Known Home Medications 10/02/18 10/02/18 History Allergies Allergy/AdvReac Type Severity Reaction Status Date / Time codeine AdvReac Nausea & Verified 10/02/18 10:03 Vomiting Penicillins AdvReac Nausea & Verified 10/02/18 10:03 Vomiting Physical Exam Vitals: Vital Signs Temp Pulse Resp BP Pulse Ox 10/04/18 13:03 98.9 F 60 20 155/89 100 10/04/18 05:00 98.8 F 62 18 165/86 99 10/03/18 20:36 97.3 F L 55 L 18 133/83 100 10/03/18 20:20 65 18 Intake and Output 10/04/18 10/04/18 10/04/18 06:59 14:59 22:59 Intake Total 880 Balance 880 Intake: Oral 880 Other: # Voids 2 5 HEENT: Anicteric conjunctiva are pink and moist nasal mucosa grossly intact without significant lesions, there is no thrush. Neck: The neck is supple without significant lymphadenopathy or thyromegaly. Lungs: Good bilateral air entry without significant crackles or wheezing. There is no significant bronchial sounds. There is no egophony or dullness. Heart: Regular rate and rhythm with an audible S1-S2, no S3 no S4. There is no significant murmur click or rub, PMI was nondisplaced. Abdomen: Positive bowel sounds, soft, tenderness the right upper quadrant as well as the right lower quadrant. No flank pain. No bruising to the abdominal wall. There is no palpable mass. No guarding, no rebound. No organomegaly. Extremities: The upper extremities have excellent pulses they are symmetric, no significant petechiae or telangiectasia. No splinter hemorrhages were noted. The lower extremities are free from significant edema. The peripheral pulses were 2+ and symmetric. Neuro: Awake alert oriented to person place and time. There are no acute new gross focal sensory motor deficits. Psych patient is very anxious and states that he would like to cut his abdomen open to try to let the pain out Results CBC & Chem 7: 10/04/18 11:12 10/04/18 11:12 Labs: Abnormal Lab Results - Last 24 Hours (Table) 10/04/18 Range/Units 11:12 Chloride 110 H (98-107) mmol/L Carbon Dioxide 16 L (22-30) mmol/L Laboratory Results WBC 6.4 k/uL (3.8-10.6) 10/04/18 11:12 RBC 4.59 m/uL (4.30-5.90) 10/04/18 11:12 Hgb 13.9 gm/dL (13.0-17.5) 10/04/18 11:12 Hct 39.2 % (39.0-53.0) 10/04/18 11:12 MCV 85.4 fL (80.0-100.0) 10/04/18 11:12 MCH 30.3 pg (25.0-35.0) 10/04/18 11:12 MCHC 35.5 g/dL (31.0-37.0) 10/04/18 11:12 RDW 12.4 % (11.5-15.5) 10/04/18 11:12 Plt Count 154 k/uL (150-450) 10/04/18 11:12 Neutrophils % 67 % 10/04/18 11:12 Lymphocytes % 23 % 10/04/18 11:12 Monocytes % 5 % 10/04/18 11:12 Eosinophils % 1 % 10/04/18 11:12 Basophils % 1 % 10/04/18 11:12 Neutrophils # 4.3 k/uL (1.3-7.7) 10/04/18 11:12 Lymphocytes # 1.5 k/uL (1.0-4.8) 10/04/18 11:12 Monocytes # 0.3 k/uL (0-1.0) 10/04/18 11:12 Eosinophils # 0.0 k/uL (0-0.7) 10/04/18 11:12 Basophils # 0.0 k/uL (0-0.2) 10/04/18 11:12 ESR 4 mm/hr (0-15) 10/02/18 09:06 Sodium 139 mmol/L (137-145) 10/04/18 11:12 Potassium 3.7 mmol/L (3.5-5.1) 10/04/18 11:12 Chloride 110 mmol/L (98-107) H 10/04/18 11:12 Carbon Dioxide 16 mmol/L (22-30) L 10/04/18 11:12 Anion Gap 13 mmol/L 10/04/18 11:12 BUN 9 mg/dL (9-20) 10/04/18 11:12 Creatinine 0.80 mg/dL (0.66-1.25) 10/04/18 11:12 Est GFR (CKD-EPI)AfAm >90 (>60 ml/min/1.73 sqM) 10/04/18 11:12 Est GFR (CKD-EPI)NonAf >90 (>60 ml/min/1.73 sqM) 10/04/18 11:12 Glucose 87 mg/dL (74-99) 10/04/18 11:12 Calcium 9.1 mg/dL (8.4-10.2) 10/04/18 11:12 Magnesium 1.8 mg/dL (1.6-2.3) 10/03/18 08:17 Total Bilirubin 1.0 mg/dL (0.2-1.3) 10/04/18 11:12 AST 49 U/L (17-59) 10/04/18 11:12 ALT 40 U/L (21-72) 10/04/18 11:12 Alkaline Phosphatase 76 U/L (38-126) 10/04/18 11:12 C-Reactive Protein 18.1 mg/L (<10.0) H 10/02/18 09:06 Total Protein 6.4 g/dL (6.3-8.2) 10/04/18 11:12 Albumin 4.1 g/dL (3.5-5.0) 10/04/18 11:12 Amylase 56 U/L (30-110) 10/02/18 09:06 Lipase 64 U/L (23-300) 10/02/18 09:06 Urine Color Yellow 10/02/18 09:30 Urine Appearance Clear (Clear) 10/02/18 09:30 Urine pH 8.5 (5.0-8.0) H 10/02/18 09:30 Ur Specific [place] 1.021 (1.001-1.035) 10/02/18 09:30 Urine Protein Trace (Negative) H 10/02/18 09:30 Urine Glucose (UA) Negative (Negative) 10/02/18 09:30 Urine Ketones 3+ (Negative) H 10/02/18 09:30 Urine Blood Negative (Negative) 10/02/18 09:30 Urine Nitrite Negative (Negative) 10/02/18 09:30 Urine Bilirubin Negative (Negative) 10/02/18 09:30 Urine Urobilinogen 2.0 mg/dL (<2.0) 10/02/18 09:30 Ur Leukocyte Esterase Negative (Negative) 10/02/18 09:30 Urine Opiates Screen Detected (NotDetected) H 10/02/18 18:35 Ur Oxycodone Screen Not Detected (NotDetected) 10/02/18 18:35 Urine Methadone Screen Not Detected (NotDetected) 10/02/18 18:35 Ur Propoxyphene Screen Not Detected (NotDetected) 10/02/18 18:35 Ur Barbiturates Screen Not Detected (NotDetected) 10/02/18 18:35 U Tricyclic Antidepress Not Detected (NotDetected) 10/02/18 18:35 Ur Phencyclidine Scrn Not Detected (NotDetected) 10/02/18 18:35 Ur Amphetamines Screen Not Detected (NotDetected) 10/02/18 18:35 U Methamphetamines Scrn Not Detected (NotDetected) 10/02/18 18:35 U Benzodiazepines Scrn Not Detected (NotDetected) 10/02/18 18:35 Urine Cocaine Screen Not Detected (NotDetected) 10/02/18 18:35 U Marijuana (THC) Screen Detected (NotDetected) H 10/02/18 18:35 Influenza Type A RNA Not Detected (Not Detectd) 10/02/18 17:30 Influenza Type B (PCR) Detected (Not Detectd) H 10/02/18 17:30 CT scan - abdomen: image reviewed (Hepatomegaly, free fluid in the pelvis no significant masses, no splenomegaly bowel without acute obstruction or inflammation) Assessment and Plan (1) Influenza B Narrative/Plan: 38 -year-old male who relates to a history of a generally healthy and very thin build is developed an acute illness. Upon presentation emergency center because of fever testing was performed baseline evidence of influenza B. He is appropriately on Tamiflu therapy. His fever has improved the patient continues to feel very poorly. He hasn't going significant abdominal pain he relates that he is not getting much relief. Seen by surgery with a nonsurgical abdomen. It is noted there is no further fever but there is the findings on computed tomography scan. There is concerns to hepatomegaly. Acute viral infection of t he liver would be considered and constantly acute hepatitis panel was requested, HIV testing is requested given his youth and Sesar-Yates viral testing will also be done, and that EBV can cause an acute hepatitis an otherwise healthy young adults. Continue the course of Tamiflu to its completion for the treatment of the influenza B Does not seem to have other bacterial infection at this point in time For his ongoing abdominal pain we'll try Reglan to see if this isn't improving his current discomforts. Given his age and status Porphyria is in differential. Workup is in process and will help direct next steps. Current Visit: Yes Status: Acute Code(s): J10.1 - FLU DUE TO OTH IDENT INFLUENZA VIRUS W OTH RESP MANIFEST SNOMED Code(s): 17587928 (2) Intractable abdominal pain Current Visit: Yes Status: Acute Code(s): R10.9 - UNSPECIFIED ABDOMINAL PAIN SNOMED Code(s): 51820823 (3) Hepatomegaly Current Visit: Yes Status: Acute Code(s): R16.0 - HEPATOMEGALY, NOT ELSEWHERE CLASSIFIED SNOMED Code(s): 45182740
--- NOTE | 2018-10-04 23:53 | PN ---
PROGRESS NOTE DATE OF SERVICE: 10/04/2018. HISTORY: This 38-year-old gentleman admitted with abdominal pain also influenza B. The patient is being closely monitored. Multiple consultants including Infectious Disease and Surgery are following the patient closely. No chest pain. No palpitations. No fever. EXAM: Alert and oriented x3. Pulse 60, blood pressure 150/80, respiration 20, temperature 98.2, pulse ox 100 percent room air. HEENT: Conjunctivae normal. Pupils equal. NECK: No JVD. CARDIOVASCULAR: S1 and S2 muffled. LUNGS: Breath sounds diminished in the bases. No rhonchi, no crackles. ABDOMEN: Soft, mildly decreased bowel sounds. No guarding. No rigidity. No mass palpable. EXTREMITIES: Legs are no edema. No swelling. LABS: CBC within normal limits, otherwise sodium 139. ASSESSMENT: 1. Abdominal pain with mild hepatomegaly, minimal ascites, probable viral syndrome with acute influenza B. 2. Mild circumferential urinary bladder thickening, possible cystitis. 3. Mild leukopenia. 4. Thrombocytopenia, possibly secondary to viral syndrome. 5. GERD. 6. History of anxiety, depression. 7. History of nicotine dependence. 8. History of THC use. RECOMMENDATIONS: Recommend to continue current management and treatment. Otherwise closely follow with multiple consultants. Guarded prognosis because of multiple complex medical conditions. Further recommendations to follow. MMODL / IJN: [id number] /
[2018-10-05 01:06] VITALS: RESP 18
[2018-10-05] MEDS: SODIUM CHLORIDE 0.9% 1,000 ML IV SCH ×2 (03:14→21:48)
[2018-10-05] MEDS: ONDANSETRON 4 MG/2 ML VIAL IVP PRN ×2 (04:55→12:52)
[2018-10-05] MEDS: HEPARIN SODIUM,PORCINE 5,000 UNIT/ML 1 ML VIAL SQ SCH ×2 (06:50→21:47)
[2018-10-05] MEDS: PANTOPRAZOLE 40 MG/10 ML VIAL IVP SCH ×2 (06:59→21:47)
[2018-10-05] MEDS: OSELTAMIVIR 75 MG CAP PO SCH ×2 (07:00→21:47)
[2018-10-05] MEDS: MULTIVITAMINS, THERA 1 EACH TAB PO SCH (07:00)
[2018-10-05] MEDS: METOCLOPRAMIDE 5 MG/ML 2 ML VIAL IVP PRN (07:04)
[2018-10-05] MEDS: KETOROLAC 30 MG/ML 1 ML VIAL IVP PRN ×2 (08:16→16:18)
[2018-10-05 11:48] LABS: Basophils % (A) 0 %; Eosinophils # (A) 0.1 k/uL (0-0.7); Eosinophils % (A) 1 %; HCT 40.3 % (39.0-53.0); HGB 14.5 gm/dL (13.0-17.5); Hyperchromasia Slight; Lymphocytes # (A) 1.1 k/uL (1.0-4.8); Lymphocytes % (A) 14 %; MCH 30.2 pg (25.0-35.0); MCV 83.7 fL (80.0-100.0); Mean Platelet Volume 9.9; Monocytes # (A) 0.3 k/uL (0-1.0); Monocytes % (A) 3 %; Neutrophils # (A) 6.4 k/uL (1.3-7.7); Neutrophils % (A) 81 %; Platelet Count 143 k/uL (150-450); RBC 4.81 m/uL (4.30-5.90); RDW 12.5 % (11.5-15.5); WBC 7.9 k/uL (3.8-10.6)
[2018-10-05 11:56] LABS: ALT 96 U/L (21-72); AST 86 U/L (17-59); Albumin 4.4 g/dL (3.5-5.0); Alkaline Phosphatase 92 U/L (38-126); Anion Gap 13 mmol/L; Blood Urea Nitrogen 5 mg/dL (9-20); Calcium 9.4 mg/dL (8.4-10.2); Carbon Dioxide 21 mmol/L (22-30); Chloride 107 mmol/L (98-107); Glucose 132 mg/dL (74-99); Potassium 3.3 mmol/L (3.5-5.1); Sodium 141 mmol/L (137-145); Total Bilirubin 1.1 mg/dL (0.2-1.3); Total Protein 6.8 g/dL (6.3-8.2)
[2018-10-05] MEDS ORDERED: Potassium Replacement Protocol 1 EACH MISC MISCELLANE PRN (12:36)
[2018-10-05] MEDS: POTASSIUM CHLORIDE ER 20 MEQ TAB.ER PO SCH ×2 (12:45→12:46)
[2018-10-05] MEDS: SUCRALFATE 1 GM TAB PO SCH ×3 (15:57→21:47)
[2018-10-05] MEDS ORDERED: cloNIDine HCL 0.1 MG TAB PO PRN (16:01)
[2018-10-05] MEDS: cloNIDine HCL 0.1 MG TAB PO SCH ×2 (16:18→21:47)
--- NOTE | 2018-10-05 18:54 | PN ---
PROGRESS NOTE DATE OF SERVICE: 10/05/2018 This 38-year-old gentleman who was admitted with abdominal pain, mild hepatomegaly, also had influenza B. The patient being closely monitored. Patient has some abdominal pain as well as some nausea. The patient is being evaluated by surgery and Infectious Disease also. The platelets are 144, sodium 140, potassium 3.3. AST/ALT slightly elevated. EXAM: Alert and oriented x3. The pulse is 72. Blood pressure 163/103, respiration 18, temperature 98.4, pulse ox 98 percent on room air. HEENT: Conjunctivae normal. Oral mucosa moist. Neck is no jugular venous distention. No carotid bruit. No lymph node enlargement. CARDIOVASCULAR: S1, S2 muffled. Respirations: Breath sounds diminished in the bases. A few scattered rhonchi and crackles. Abdomen is soft, nontender. Legs are no edema, no swelling. CENTRAL NERVOUS SYSTEM: No focal deficits. LAB STUDIES: WBC 1.9. ESR is 4 and CRP less than 5. Sodium 140. Potassium 3.3. ASSESSMENT: 1. Abdominal pain with mild hepatomegaly, minimal ascites, possibly evaluation with acute influenza B. 2. Mild circumferential urinary bladder thickening, possible cystitis. 3. Mild leukopenia. 4. Thrombocytopenia, possibly secondary to viral syndrome. 5. Gastroesophageal reflux disease. 6. History of anxiety and depression. 7. History of nicotine dependence. 8. History of THC usage. RECOMMENDATIONS AND DISCUSSION: Recommend to continue current medications. Monitor and symptomatic treatment. Otherwise, we will monitor the patient closely. Advance diet per Surgery. Guarded prognosis because of multiple complex medical issues. Further recommendations to follow. See orders for details. MMODL / IJN: [id number] /
--- NOTE | 2018-10-05 23:14 | P.PN ---
Subjective Progress Note Date: 10/05/18 38 -year-old male who presents to the emergency center with a 10 day history of increasing amounts of abdominal pain. He's been feeling poorly for the entire time having difficulties eating. Developing waxes and wanes this severe. Because it was non-improving he came to the emergency center and there is evidence some low-grade fever and testing was performed. Without evidence of influenza B was admitted hospital and has been initiated antiviral therapy. Patient continues to feel poorly he continues to have abdominal pain and there is evidence of some free fluid in the pelvis and with concerns to ongoing infection infectious diseases consultation was requested. Araceli Rob is a with the family home with his and 2 children. 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 He is unable to relate any significant changes as of late as to why he was ill. He over is of course around children because of his kids and the home setting. Does not recall others that are ill but his children have had respiratory infection the last month. No one else has had any significant gastrointestinal symptoms though. 10/05/2018 patient was feeling a bit better but is continuing to have difficulties with severe reflux. He is concerned that Protonix if she is worsening his symptoms. He's having significant right-sided abdominal pain and has some nausea and emesis earlier. He denies hematemesis melena hematochezia or profuse diarrhea. Does feel poorly. He is seems to be tolerating the Tamiflu well for the treatment of his influenza B. Pulmonary symptoms are resolving. Objective - Vital Signs Vital signs: Vital Signs Temp 98.8 F 10/05/18 20:56 Pulse 58 L 10/05/18 20:56 Resp 18 10/05/18 20:56 BP 149/100 10/05/18 20:56 Pulse Ox 98 10/05/18 20:56 Intake & Output 10/05/18 10/05/18 10/06/18 06:59 18:59 06:59 Intake Total 500 Balance 500 Intake: Oral 500 Other: Voiding Method Toilet # Voids 0 2 # Bowel Movements 0 - Exam HEENT: Anicteric conjunctiva are pink and moist nasal mucosa grossly intact without significant lesions, there is no thrush. Neck: The neck is supple without significant lymphadenopathy or thyromegaly. Lungs: Good bilateral air entry without significant crackles or wheezing. There is no significant bronchial sounds. There is no egophony or dullness. Heart: Regular rate and rhythm with an audible S1-S2, no S3 no S4. There is no significant murmur click or rub, PMI was nondisplaced. Abdomen: Positive bowel sounds, soft, tenderness the right upper quadrant as well as the right lower quadrant. No flank pain. No bruising to the abdominal wall. There is no palpable mass. No guarding, no rebound. No organomegaly. Extremities: The upper extremities have excellent pulses they are symmetric, no significant petechiae or telangiectasia. No splinter hemorrhages were noted. The lower extremities are free from significant edema. The peripheral pulses were 2+ and symmetric. Neuro: Awake alert oriented to person place and time. There are no acute new gross focal sensory motor deficits. Psych patient is less anxious but is having reflux and remains miserable - Labs CBC & Chem 7: 10/05/18 10:38 10/05/18 10:38 Labs: Abnormal Lab Results - Last 24 Hours (Table) 10/05/18 10/05/18 Range/Units 10:38 10:38 Plt Count 143 L (150-450) k/uL Potassium 3.3 L (3.5-5.1) mmol/L Carbon Dioxide 21 L (22-30) mmol/L BUN 5 L (9-20) mg/dL Glucose 132 H (74-99) mg/dL AST 86 H (17-59) U/L ALT 96 H (21-72) U/L Laboratory Results WBC 7.9 k/uL (3.8-10.6) 10/05/18 10:38 RBC 4.81 m/uL (4.30-5.90) 10/05/18 10:38 Hgb 14.5 gm/dL (13.0-17.5) 10/05/18 10:38 Hct 40.3 % (39.0-53.0) 10/05/18 10:38 MCV 83.7 fL (80.0-100.0) 10/05/18 10:38 MCH 30.2 pg (25.0-35.0) 10/05/18 10:38 MCHC 36.0 g/dL (31.0-37.0) 10/05/18 10:38 RDW 12.5 % (11.5-15.5) 10/05/18 10:38 Plt Count 143 k/uL (150-450) L 10/05/18 10:38 Neutrophils % 81 % 10/05/18 10:38 Lymphocytes % 14 % 10/05/18 10:38 Monocytes % 3 % 10/05/18 10:38 Eosinophils % 1 % 10/05/18 10:38 Basophils % 0 % 10/05/18 10:38 Neutrophils # 6.4 k/uL (1.3-7.7) 10/05/18 10:38 Lymphocytes # 1.1 k/uL (1.0-4.8) 10/05/18 10:38 Monocytes # 0.3 k/uL (0-1.0) 10/05/18 10:38 Eosinophils # 0.1 k/uL (0-0.7) 10/05/18 10:38 Basophils # 0.0 k/uL (0-0.2) 10/05/18 10:38 Hyperchromasia Slight 10/05/18 10:38 ESR 4 mm/hr (0-15) 10/05/18 10:38 Sodium 141 mmol/L (137-145) 10/05/18 10:38 Potassium 3.3 mmol/L (3.5-5.1) L 10/05/18 10:38 Chloride 107 mmol/L (98-107) 10/05/18 10:38 Carbon Dioxide 21 mmol/L (22-30) L 10/05/18 10:38 Anion Gap 13 mmol/L 10/05/18 10:38 BUN 5 mg/dL (9-20) L 10/05/18 10:38 Creatinine 0.77 mg/dL (0.66-1.25) 10/05/18 10:38 Est GFR (CKD-EPI)AfAm >90 (>60 ml/min/1.73 sqM) 10/05/18 10:38 Est GFR (CKD-EPI)NonAf >90 (>60 ml/min/1.73 sqM) 10/05/18 10:38 Glucose 132 mg/dL (74-99) H 10/05/18 10:38 Calcium 9.4 mg/dL (8.4-10.2) 10/05/18 10:38 Magnesium 1.8 mg/dL (1.6-2.3) 10/03/18 08:17 Total Bilirubin 1.1 mg/dL (0.2-1.3) 10/05/18 10:38 AST 86 U/L (17-59) H 10/05/18 10:38 ALT 96 U/L (21-72) H 10/05/18 10:38 Alkaline Phosphatase 92 U/L (38-126) 10/05/18 10:38 C-Reactive Protein <5.0 mg/L (<10.0) 10/05/18 10:38 Total Protein 6.8 g/dL (6.3-8.2) 10/05/18 10:38 Albumin 4.4 g/dL (3.5-5.0) 10/05/18 10:38 Amylase 56 U/L (30-110) 10/02/18 09:06 Lipase 64 U/L (23-300) 10/02/18 09:06 Urine Color Yellow 10/02/18 09:30 Urine Appearance Clear (Clear) 10/02/18 09:30 Urine pH 8.5 (5.0-8.0) H 10/02/18 09:30 Ur Specific [place] 1.021 (1.001-1.035) 10/02/18 09:30 Urine Protein Trace (Negative) H 10/02/18 09:30 Urine Glucose (UA) Negative (Negative) 10/02/18 09:30 Urine Ketones 3+ (Negative) H 10/02/18 09:30 Urine Blood Negative (Negative) 10/02/18 09:30 Urine Nitrite Negative (Negative) 10/02/18 09:30 Urine Bilirubin Negative (Negative) 10/02/18 09:30 Urine Urobilinogen 2.0 mg/dL (<2.0) 10/02/18 09:30 Ur Leukocyte Esterase Negative (Negative) 10/02/18 09:30 Urine Opiates Screen Detected (NotDetected) H 10/02/18 18:35 Ur Oxycodone Screen Not Detected (NotDetected) 10/02/18 18:35 Urine Methadone Screen Not Detected (NotDetected) 10/02/18 18:35 Ur Propoxyphene Screen Not Detected (NotDetected) 10/02/18 18:35 Ur Barbiturates Screen Not Detected (NotDetected) 10/02/18 18:35 U Tricyclic Antidepress Not Detected (NotDetected) 10/02/18 18:35 Ur Phencyclidine Scrn Not Detected (NotDetected) 10/02/18 18:35 Ur Amphetamines Screen Not Detected (NotDetected) 10/02/18 18:35 U Methamphetamines Scrn Not Detected (NotDetected) 10/02/18 18:35 U Benzodiazepines Scrn Not Detected (NotDetected) 10/02/18 18:35 Urine Cocaine Screen Not Detected (NotDetected) 10/02/18 18:35 U Marijuana (THC) Screen Detected (NotDetected) H 10/02/18 18:35 Influenza Type A RNA Not Detected (Not Detectd) 10/02/18 17:30 Influenza Type B (PCR) Detected (Not Detectd) H 10/02/18 17:30 Assessment and Plan (1) Influenza B Narrative/Plan: 38 -year-old male who relates to a history of a generally healthy and very thin build is developed an acute illness. Upon presentation emergency center because of fever testing was performed baseline evidence of influenza B. He is appropriately on Tamiflu therapy. His fever has improved the patient continues to feel very poorly. He hasn't going significant abdominal pain he relates that he is not getting much relief. Seen by surgery with a nonsurgical abdomen. It is noted there is no further fever but there is the findings on computed tomography scan. There is concerns to hepatomegaly. Acute viral infection of the liver would be considered and constantly acute hepatitis panel was requested, HIV testing is requested given his youth and Sesar-Yates viral testing will also be done, and that EBV can cause an acute hepatitis an otherwise healthy young adults. Continue the course of Tamiflu to its completion for the treatment of the influenza B Does not seem to have other bacterial infection at this point in time For his ongoing abdominal pain we'll try Reglan to see if this isn't improving his current discomforts. Given his age and status Porphyria is in differential. Workup is in process and will help direct next steps. 10/05/2018 patient has had some improvement in his status once Reglan was started but is now having difficulties with some nausea and abdominal pain. Is also having reflux. We'll try Carafate to see if this can improve the reflux since he does not want Protonix. Workup for his hepatomegaly remains impresses at this point in time Continue the Tamiflu to complete the treatment of his influenza B. If improved may be discharged soon with follow-up in the outpatient setting. Current Visit: Yes Status: Acute Code(s): J10.1 - FLU DUE TO OTH IDENT INFLUENZA VIRUS W OTH RESP MANIFEST SNOMED Code(s): 68213572 (2) Intractable abdominal pain Current Visit: Yes Status: Acute Code(s): R10.9 - UNSPECIFIED ABDOMINAL PAIN SNOMED Code(s): 65587458 (3) Hepatomegaly Current Visit: Yes Status: Acute Code(s): R16.0 - HEPATOMEGALY, NOT ELSEWHERE CLASSIFIED SNOMED Code(s): 88135644
[2018-10-06] MEDS: KETOROLAC 30 MG/ML 1 ML VIAL IVP PRN (00:13)
[2018-10-06 05:13] VITALS: BP 144/84; PULSE 80; TEMP 97.9
[2018-10-06] MEDS: SUCRALFATE 1 GM TAB PO SCH ×2 (07:01→11:24)
[2018-10-06] MEDS: PANTOPRAZOLE 40 MG/10 ML VIAL IVP SCH (07:01)
[2018-10-06] MEDS: OSELTAMIVIR 75 MG CAP PO SCH (07:02)
[2018-10-06] MEDS: MULTIVITAMINS, THERA 1 EACH TAB PO SCH (07:02)
[2018-10-06] MEDS: cloNIDine HCL 0.1 MG TAB PO SCH (07:02)
[2018-10-06] MEDS: HEPARIN SODIUM,PORCINE 5,000 UNIT/ML 1 ML VIAL SQ SCH (07:04)
[2018-10-06] MEDS: ONDANSETRON 4 MG/2 ML VIAL IVP PRN (07:10)
[2018-10-06 09:01] LABS: Basophils % (A) 0 %; Eosinophils # (A) 0.1 k/uL (0-0.7); Eosinophils % (A) 1 %; HCT 40.1 % (39.0-53.0); HGB 13.9 gm/dL (13.0-17.5); Lymphocytes # (A) 1.2 k/uL (1.0-4.8); Lymphocytes % (A) 21 %; MCH 29.7 pg (25.0-35.0); MCHC 34.7 g/dL (31.0-37.0); MCV 85.7 fL (80.0-100.0); Mean Platelet Volume 9.7; Monocytes # (A) 0.3 k/uL (0-1.0); Monocytes % (A) 5 %; Neutrophils # (A) 4.2 k/uL (1.3-7.7); Neutrophils % (A) 73 %; Platelet Count 165 k/uL (150-450); RBC 4.68 m/uL (4.30-5.90); RDW 11.9 % (11.5-15.5); WBC 5.8 k/uL (3.8-10.6)
[2018-10-06 09:21] LABS: ALT 93 U/L (21-72); AST 57 U/L (17-59); Albumin 4.2 g/dL (3.5-5.0); Alkaline Phosphatase 68 U/L (38-126); Anion Gap 10 mmol/L; Blood Urea Nitrogen 5 mg/dL (9-20); Calcium 9.2 mg/dL (8.4-10.2); Carbon Dioxide 24 mmol/L (22-30); Chloride 107 mmol/L (98-107); Glucose 110 mg/dL (74-99); Magnesium 1.7 mg/dL (1.6-2.3); Potassium 3.5 mmol/L (3.5-5.1); Sodium 141 mmol/L (137-145); Total Bilirubin 0.8 mg/dL (0.2-1.3); Total Protein 6.7 g/dL (6.3-8.2)
[2018-10-06 10:10] LABS: EBV-VCA (IgG) >8.0 AI
[2018-10-06 11:05] LABS: HIV 1 AB Non-Reactive (Non-Reactive); HIV AB P24 Non-Reactive (Non-Reactive); HIV P24 AG Non-Reactive (Non-Reactive)
[2018-10-06 11:18] LABS: Hepatitis A Antibody IgM Non-Reactive (Non-Reactive); Hepatitis B Core IgM Non-Reactive (Non-Reactive)
[2018-10-06] MEDS: SODIUM CHLORIDE 0.9% 1,000 ML IV SCH (11:23)
--- NOTE | 2018-10-06 13:29 | P.CONS ---
History of Present Illness - Reason for Consult Consult date: 10/05/18 Abdominal pain for possible EGD - History of Present Illness The patient is a 58-year-old male who initially presented to the emergency room with history of lower abdominal pains of 2 weeks duration. The patient has history of gastroesophageal reflux disease and prior hernia surgery as well as anxiety and depression. He was found to have influenza B viral infection and was admitted to the hospital and was started on treatment for same. He continues to have issues with abdominal pain and stomach upset. We are asked to see him for consideration for upper endoscopy. He was started on Carafate by infectious diseases specialist who is following him as well. The patient denies dysphagia, odynophagia, hematemesis or melena. No diarrhea at this time or changes in his stools. Review of Systems CONSTITUTIONAL: Denies any fevers, chills, weight change or fatigue. CARDIOVASCULAR: Denies any chest pain, palpitations high or low blood pressures RESPIRATORY: Denies any shortness of breath, hemoptysis or cough. GENITOURINARY: No dysuria or hematuria. MUSCULOSKELETAL: No weakness reported. SKIN: Denies any new rashes or lesions, jaundice or pallor. PSYCHIATRIC: Denies any depression or anxiety. NEUROLOGY: Denies headache, denies any new focal deficits. EARS/NOSE/THROAT: No recent hearing change, congestion, nasal discharge or sore throat. EYES: No pain in eyes, discharge or change in vision. GASTROINTESTINAL: As per HPI. Past Medical History Past Medical History: GERD/Reflux History of Any Multi-Drug Resistant Organisms: None Reported Past Surgical History: Hernia Repair Additional Past Surgical History / Comment(s): medhat Past Psychological History: Anxiety, Depression Additional Psychological History / Comment(s): and lives in the family home with and 2 kids. 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 No experience. No international travel pet dog in the home. Positive tobacco use but has markedly diminished in the last 2 weeks because he has been ill. Denies significant alcohol use. Denies a history of any injection drug abuse or narcotic abuse Smoking Status: Current every day smoker Past Alcohol Use History: Occasional Past Drug Use History: Marijuana Medications and Allergies Home Medications Medication Instructions Recorded Confirmed Type Acetaminophen Tab [Tylenol] 650 mg PO Q6HR PRN tab 10/06/18 Rx Oseltamivir [Tamiflu] 75 mg PO Q12HR #6 cap 10/06/18 Rx Pantoprazole Sodium [Protonix] 40 mg PO DAILY #30 tablet. 10/06/18 Rx Sucralfate [Carafate] 1 gm PO ACHS #60 tab 10/06/18 Rx cloNIDine HCL [Catapres] 0.1 mg PO BID #40 tab 10/06/18 Rx Allergies Allergy/AdvReac Type Severity Reaction Status Date / Time codeine AdvReac Nausea & Verified 10/02/18 10:03 Vomiting Penicillins AdvReac Nausea & Verified 10/02/18 10:03 Vomiting Physical Exam Vitals: Vital Signs Temp Pulse Resp BP Pulse Ox 10/05/18 05:00 97.9 F 85 18 168/89 100 10/04/18 21:00 98.3 F 58 L 18 148/87 99 Intake and Output 10/04/18 10/05/18 10/05/18 22:59 06:59 14:59 Intake Total 500 Balance 500 Intake: Oral 500 Other: Voiding Method Toilet # Voids 1 0 1 # Bowel Movements 0 0 On physical examination, patient appears very pleasant, stated age in no apparent distress. HEAD: Normocephalic, atraumatic. EYES: No scleral icterus. No conjunctival injection. MOUTH: No lesions, tongue midline. NECK: Trachea midline, no gross abnormalities. CHEST: Clear to auscultation with no wheezing or rhonchi appreciated. HEART: Regular, no abnormal solids, murmurs or friction rubs. ABDOMEN: Soft. Bowel sounds are positive. No organomegaly. No guarding or rigidity. EXTREMITIES: No pedal edema. SKIN: No rashes, no jaundice. NEUROLOGIC: Alert and oriented. No focal deficits. Results CBC & Chem 7: 10/06/18 08:42 10/06/18 08:42 Labs: Abnormal Lab Results - Last 24 Hours (Table) 10/05/18 10/05/18 Range/Units 10:38 10:38 Plt Count 143 L (150-450) k/uL Potassium 3.3 L (3.5-5.1) mmol/L Carbon Dioxide 21 L (22-30) mmol/L BUN 5 L (9-20) mg/dL Glucose 132 H (74-99) mg/dL AST 86 H (17-59) U/L ALT 96 H (21-72) U/L Assessment and Plan Assessment: Abdominal pain could be related to peptic ulcer disease or complicated reflux. The patient is on treatment for influenza B infection. Medication effects or superimposed esophageal infection to be kept in mind. Plan: Agree with your current management. We'll continue Carafate. I'll consider an upper endoscopy is done his progress in the next 24-48 hours. I'll discuss with you and continue to follow with you with interest.
[2018-10-06] MEDS ORDERED: PANTOPRAZOLE 40 MG TABLET PO SCH (17:30)
--- NOTE | 2018-10-07 06:32 | DS ---
DISCHARGE SUMMARY DATE OF SERVICE: 10/06/2018 FINAL DIAGNOSES: 1. Abdominal pain with mild hepatomegaly, minimal ascites possibly secondary to acute influenza B. 2. Mild circumferential urinary bladder thickening, possible acute cystitis, improved. 3. Mild leukopenia. 4. Thrombocytopenia possibly secondary to viral syndrome. 5. Gastroesophageal reflux disease. 6. History of anxiety, depression. 7. History of nicotine dependence. 8. History of THC. DISCHARGE DISPOSITION: The patient will be discharged in stable condition with guarded prognosis. HISTORY OF PRESENT ILLNESS: This 38-year-old gentleman with past medical history of multiple medical problems admitted with abdominal pain, hepatomegaly, ascites and multiple findings. Influenza B was positive, treated symptomatically. Patient improved significantly. Patient able to tolerate diet. Seen by Gastroenterology and Infectious Disease and Surgery. On exam, alert and oriented x3. Vitals are normal. HEENT: Conjunctivae normal. CARDIOVASCULAR: S1, S2 muffled. RESPIRATIONS: Breath sounds diminished at the bases. No rhonchi. No crackles. ABDOMEN: Soft. NERVOUS SYSTEM: No focal deficits. Labs are reviewed. DISCHARGE ADVICE: 1. Diet is soft, cardiac. 2. Activity limited until followup. 3. Follow up with Dr. Rushing in 2 to 3 days. Medications are: 1. Carafate 1 gram q.a.c. and at bedtime. 2. Catapres 0.1 p.o. b.i.d. 3. Protonix 40 mg daily. 4. Tamiflu 75 mg p.o. b.i.d. 5. Tylenol p.r.n. Once again, the patient will be discharged in a stable condition with guarded prognosis. Follow up with GI as recommended. MMODL / IJN: [id number] /
== END 2018-10-06 14:40 | disposition home or self-care (01) | DRG 866 ==
LOC: EC 08:37 → 4MS4W 13:46 → OBSVTOIN 10-04 14:59
PROVIDERS: ADMIT Hospitalist; ATTEND Hospitalist
DX: J10.2 Influenza due to other identified influenza virus with gastrointestinal manifestations (principal); R18.8 Other ascites; N30.00 Acute cystitis without hematuria; D69.6 Thrombocytopenia, unspecified; R16.0 Hepatomegaly, not elsewhere classified; K76.1 Chronic passive congestion of liver; B34.9 Viral infection, unspecified; K21.9 Gastro-esophageal reflux disease without esophagitis; K52.9 Noninfective gastroenteritis and colitis, unspecified; F17.200 Nicotine dependence, unspecified, uncomplicated; Z79.899 Other long term (current) drug therapy; Z88.5 Allergy status to narcotic agent; Z86.59 Personal history of other mental and behavioral disorders; Z88.0 Allergy status to penicillin; Z82.3 Family history of stroke
CPT/HCPCS: 36415; 71045; 74018; 74177; 80053; 80074; 80306; 81003; 82150; 83690; 83735; 85025; 85652; 86140; 86663; 86664; 86665; 87390; 87502; 96361; 96374; 96375; 96376; 99285

== ENCOUNTER 2022-01-28 17:04 | Emergency (ER) | payer OTHER ==
[2022-01-28 17:10] VITALS: TEMP 98.1
[2022-01-28] MEDS ORDERED: SODIUM CHLORIDE 0.9% 1,000 ML IV STA (17:17)
[2022-01-28 17:40] LABS: Basophils % (A) 0 %; Eosinophils % (A) 0 %; HCT 44.8 % (39.0-53.0); Lymphocytes # (A) 1.7 k/uL (1.0-4.8); Lymphocytes % (A) 15 %; MCH 31.3 pg (25.0-35.0); MCHC 35.7 g/dL (31.0-37.0); MCV 87.5 fL (80.0-100.0); Mean Platelet Volume 8.2; Monocytes # (A) 0.6 k/uL (0-1.0); Monocytes % (A) 5 %; Neutrophils # (A) 8.8 k/uL (1.3-7.7); Neutrophils % (A) 78 %; Platelet Count 299 k/uL (150-450); RBC 5.12 m/uL (4.30-5.90); RDW 11.9 % (11.5-15.5); WBC 11.2 k/uL (3.8-10.6)
[2022-01-28 17:43] LABS: Albumin 5.3 g/dL (3.5-5.0); Calcium 10.6 mg/dL (8.4-10.2); Potassium 3.6 mmol/L (3.5-5.1); Total Bilirubin 1.1 mg/dL (0.2-1.3); Total Protein 7.8 g/dL (6.3-8.2)
[2022-01-28 18:00] LABS: Appearance,Urine Clear (Clear); Bilirubin,Urine 1+ (Negative); Blood,Urine Negative (Negative); Color,Urine Yellow; Glucose,Urine (UA) Negative (Negative); Hyaline Casts,Urine 1 /lpf (0-2); Ketones,Urine 4+ (Negative); Leukocyte Esterase,Urine Negative (Negative); Mucus,Urine Many /hpf; Nitrite,Urine Negative (Negative); Protein,Urine 1+ (Negative); RBC,Urine 1 /hpf (0-5); Specific Gravity,Urine 1.033 (1.001-1.035); Squamous Epithelial Cell,Urine <1 /hpf (0-4); WBC,Urine 1 /hpf (0-5)
[2022-01-28] MEDS ORDERED: KETOROLAC 15 MG/ML 1 ML VIAL IVP STA (18:57)
[2022-01-28] MEDS ORDERED: SODIUM CHLORIDE 0.9% 1,000 ML IV ONE (18:57)
[2022-01-28] MEDS ORDERED: ONDANSETRON 4 MG/2 ML VIAL IVP STA (18:58)
--- NOTE | 2022-01-28 19:30 | CT ---
EXAMINATION TYPE: CT abdomen pelvis w con DATE OF EXAM: 01/28/2022 COMPARISON: 10/02/2018 HISTORY: Abdominal pain, vomiting. CT DLP: 611 mGycm Automated exposure control for dose reduction was used. CONTRAST: Performed with IV Contrast, patient injected with 100 mL of Isovue 300. Images obtained from the diaphragm to the floor the pelvis with IV contrast. Lung bases are clear. No pleural effusion. Heart size is normal. Liver spleen stomach pancreas and ga llbladder appear intact. The bile ducts are not dilated. There is no adrenal mass. Kidneys show satisfactory contrast opacification. There is no hydronephrosi s. Ureters are not dilated. Bladder distends smoothly. No inguinal hernia. No free fluid in the pelvi s. No pelvic mass. Appendix not clearly seen. There is no mesenteric edema. No ascites or free air. No sign of a bowel obstruction. Delayed images show normal renal excretion. The lumbar vertebrae have normal alignment. Posterior elements are intact. No compression fracture. T he bony pelvis is intact. Hip joints are intact. IMPRESSION: Negative CT scan of the abdomen and pelvis.
[2022-01-28] MEDS ORDERED: MORPHINE SULFATE 4 MG/ML SYRINGE IVP STA (20:30)
[2022-01-28] MEDS ORDERED: MAG HYDROX/AL HYDROX/SIMETH 30 ML, HYOSCYAMINE ELIXIR 10 ML, LIDOCAINE VISCOUS 2% 10 ML PO STA ×3 (20:30)
[2022-01-28] MEDS ORDERED: PANTOPRAZOLE 40 MG/10 ML VIAL IVP STA (20:30)
--- NOTE | 2022-01-28 20:55 | ED ---
General Adult HPI - General Chief complaint: Abdominal Pain Stated complaint: abd pain Time Seen by Provider: 01/28/22 17:15 Source: patient, family Mode of arrival: ambulatory Limitations: no limitations - History of Present Illness Initial comments: 41-year-old male with past history of daily marijuana use presents emergency department with generalized abdominal pain, nausea and vomiting. States the pain started Saturday after he had a long drive from [place]. Has had previous episodes of this pain in the past. 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 Since Saturday he has had decreased fluid intake. Continues to produce urine however it started in color. Denies hematemesis. No sick contacts. No fevers. No previous abdominal surgeries. No other alleviating, precipitating or modifying factors - Related Data Previous Rx's Medication Instructions Recorded Acetaminophen Tab [Tylenol] 650 mg PO Q6HR PRN tab 10/06/18 Oseltamivir [Tamiflu] 75 mg PO Q12HR #6 cap 10/06/18 Pantoprazole Sodium [Protonix] 40 mg PO DAILY #30 tablet. 10/06/18 Sucralfate [Carafate] 1 gm PO ACHS #60 tab 10/06/18 cloNIDine HCL [Catapres] 0.1 mg PO BID #40 tab 10/06/18 Famotidine [Pepcid] 20 mg PO BID #28 tablet 01/28/22 Ondansetron Odt [Zofran Odt] 4 mg PO Q8HR PRN #15 tab 01/28/22 Sucralfate [Carafate] 1 gm PO ACHS #56 tablet 01/28/22 Allergies Allergy/AdvReac Type Severity Reaction Status Date / Time codeine AdvReac Nausea & Verified 01/28/22 17:10 Vomiting Penicillins AdvReac Nausea & Verified 01/28/22 17:10 Vomiting Review of Systems ROS Statement: Those systems with pertinent positive or pertinent negative responses have been documented in the HPI. ROS Other: All systems not noted in ROS Statement are negative. Past Medical History Past Medical History: GERD/Reflux History of Any Multi-Drug Resistant Organisms: None Reported Past Surgical History: Hernia Repair Additional Past Surgical History / Comment(s): medhat Past Psychological History: Anxiety, Depression Past Alcohol Use History: Occasional Past Drug Use History: Marijuana General Exam Limitations: no limitations General appearance: alert, in no apparent distress Head exam: Present: atraumatic, normocephalic, normal inspection Eye exam: Present: normal appearance, PERRL, EOMI. Absent: scleral icterus, conjunctival injection, periorbital swelling ENT exam: Present: normal exam, mucous membranes moist Neck exam: Present: normal inspection. Absent: tenderness, meningismus, lymphadenopathy Respiratory exam: Present: normal lung sounds bilaterally. Absent: respiratory distress, wheezes, rales, rhonchi, stridor Cardiovascular Exam: Present: regular rate, normal rhythm, normal heart sounds. Absent: systolic murmur, diastolic murmur, rubs, gallop, clicks GI/Abdominal exam: Present: soft, tenderness (generalized), normal bowel sounds. Absent: distended, guarding, rebound, rigid Extremities exam: Present: normal inspection, full ROM, normal capillary refill. Absent: tenderness, pedal edema, joint swelling, calf tenderness Back exam: Present: normal inspection Neurological exam: Present: alert, oriented X3, CN II-XII intact Psychiatric exam: Present: normal affect, normal mood Skin exam: Present: warm, dry, intact, normal color. Absent: rash Course Vital Signs 01/28/22 01/28/22 17:05 21:21 Temperature 98.1 F Pulse Rate 88 72 Respiratory 18 16 Rate Blood Pressure 133/94 141/88 O2 Sat by Pulse 98 95 Oximetry Medical Decision Making - Medical Decision Making Upon arrival patient was placed in room 10. There are history and physical exam was performed. IV access established laboratory studies were conducted. Urinalysis does demonstrate 4+ ketones. CT of abdomen and pelvis performed which demonstrates no acute process. He was originally given Zofran, a liter of fluid and 15 of Toradol for pain control. He continues to have pain and therefore he is given a GI cocktail, 40 mg Protonix 4 mg of the feet. Patient is reevaluated after this and does report that his symptoms have improved. He'll be discharged home. She'll be placed on Pepcid, Carafate and switched to Zofran from Reglan. Instructed follow up with his GI surgeon return for any new or worsening symptoms per patient. He was discharged home in stable condition - Lab Data Result diagrams: 01/28/22 17:20 01/28/22 17:20 Lab Results 01/28/22 01/28/2201/28/22 Range/Units 17:20 17:20 17:29 WBC 11.2 H (3.8-10.6) k/uL RBC 5.12 (4.30-5.90) m/uL Hgb 16.0 (13.0-17.5) gm/dL Hct 44.8 (39.0-53.0) % MCV 87.5 (80.0-100.0) fL MCH 31.3 (25.0-35.0) pg MCHC 35.7 (31.0-37.0) g/dL RDW 11.9 (11.5-15.5) % Plt Count 299 (150-450) k/uL MPV 8.2 Neutrophils % 78 % Lymphocytes % 15 % Monocytes % 5 % Eosinophils % 0 % Basophils % 0 % Neutrophils # 8.8 H (1.3-7.7) k/uL Lymphocytes # 1.7 (1.0-4.8) k/uL Monocytes # 0.6 (0-1.0) k/uL Eosinophils # 0.0 (0-0.7) k/uL Basophils # 0.0 (0-0.2) k/uL Sodium 136 L (137-145) mmol/L Potassium 3.6 (3.5-5.1) mmol/L Chloride 103 (98-107) mmol/L Carbon Dioxide 20 L (22-30) mmol/L Anion Gap 13 mmol/L BUN 17 (9-20) mg/dL Creatinine 1.19 (0.66-1.25) mg/dL Est GFR (CKD-EPI)AfAm 88 (>60 ml/min/1.73 sqM) Est GFR (CKD-EPI)NonAf 76 (>60 ml/min/1.73 sqM) Glucose 106 H (74-99) mg/dL Plasma Lactic Acid Deacon 1.4 (0.7-2.0) mmol/L Calcium 10.6 H (8.4-10.2) mg/dL Total Bilirubin 1.1 (0.2-1.3) mg/dL AST 26 (17-59) U/L ALT 15 (4-49) U/L Alkaline Phosphatase 64 (38-126) U/L Total Protein 7.8 (6.3-8.2) g/dL Albumin 5.3 H (3.5-5.0) g/dL Lipase 121 (23-300) U/L Urine Color Urine Appearance (Clear) Urine pH (5.0-8.0) Ur Specific [place] (1.001-1.035) Urine Protein (Negative) Urine Glucose (UA) (Negative) Urine Ketones (Negative) Urine Blood (Negative) Urine Nitrite (Negative) Urine Bilirubin (Negative) Urine Urobilinogen (<2.0) mg/dL Ur Leukocyte Esterase (Negative) Urine RBC (0-5) /hpf Urine WBC (0-5) /hpf Ur Squamous Epith Cells (0-4) /hpf Hyaline Casts (0-2) /lpf Urine Mucus (None) /hpf 01/28/22 Range/Units 17:50 WBC (3.8-10.6) k/uL RBC (4.30-5.90) m/uL Hgb (13.0-17.5) gm/dL Hct (39.0-53.0) % MCV (80.0-100.0) fL MCH (25.0-35.0) pg MCHC (31.0-37.0) g/dL RDW (11.5-15.5) % Plt Count (150-450) k/uL MPV Neutrophils % % Lymphocytes % % Monocytes % % Eosinophils % % Basophils % % Neutrophils # (1.3-7.7) k/uL Lymphocytes # (1.0-4.8) k/uL Monocytes # (0-1.0) k/uL Eosinophils # (0-0.7) k/uL Basophils # (0-0.2) k/uL Sodium (137-145) mmol/L Potassium (3.5-5.1) mmol/L Chloride (98-107) mmol/L Carbon Dioxide (22-30) mmol/L Anion Gap mmol/L BUN (9-20) mg/dL Creatinine (0.66-1.25) mg/dL Est GFR (CKD-EPI)AfAm (>60 ml/min/1.73 sqM) Est GFR (CKD-EPI)NonAf (>60 ml/min/1.73 sqM) Glucose (74-99) mg/dL Plasma Lactic Acid Deacon (0.7-2.0) mmol/L Calcium (8.4-10.2) mg/dL Total Bilirubin (0.2-1.3) mg/dL AST (17-59) U/L ALT (4-49) U/L Alkaline Phosphatase (38-126) U/L Total Protein (6.3-8.2) g/dL Albumin (3.5-5.0) g/dL Lipase (23-300) U/L Urine Color Yellow Urine Appearance Clear (Clear) Urine pH 6.0 (5.0-8.0) Ur Specific [place] 1.033 (1.001-1.035) Urine Protein 1+ H (Negative) Urine Glucose (UA) Negative (Negative) Urine Ketones 4+ H (Negative) Urine Blood Negative (Negative) Urine Nitrite Negative (Negative) Urine Bilirubin 1+ H (Negative) Urine Urobilinogen 4.0 (<2.0) mg/dL Ur Leukocyte Esterase Negative (Negative) Urine RBC 1 (0-5) /hpf Urine WBC 1 (0-5) /hpf Ur Squamous Epith Cells <1 (0-4) /hpf Hyaline Casts 1 (0-2) /lpf Urine Mucus Many H (None) /hpf Disposition Clinical Impression: Nausea & vomiting Disposition: HOME SELF-CARE Condition: Stable Instructions (If sedation given, give patient instructions): Abdominal Pain (ED) Additional Instructions: Substitute the reglan for the zofran for nausea. Add pepcid and carafate to your regimen at this time. Follow up with her primary care doctor and GI specialist. Return for any new or worsening symptoms Prescriptions: Sucralfate [Carafate] 1 gm PO ACHS #56 tablet Famotidine [Pepcid] 20 mg PO BID #28 tablet Ondansetron Odt [Zofran Odt] 4 mg PO Q8HR PRN #15 tab PRN Reason: Nausea Is patient prescribed a controlled substance at d/c from ED?: No Referrals: Nonstaff,Physician [Primary Care Provider] - 1-2 days Time of Disposition: 21:04
[2022-01-28 21:23] VITALS: BP 141/88; PULSE 72; RESP 16
== END 2022-01-28 21:23 | disposition home or self-care (01) ==
LOC: EC 17:04
DX: R11.2 Nausea with vomiting, unspecified (principal); R10.84 Generalized abdominal pain; Z88.5 Allergy status to narcotic agent
CPT/HCPCS: 99284; 96374; 96375; 96361; 36415; 80053; 83605; 83690; 85025; 81001; 74177; J2270; J2405; J1885; C9113; Q9967